=== PATIENT | male | born 1950 | race Caucasian/White ===

== ENCOUNTER 2022-08-16 14:08 | Inpatient (IN) | payer MEDICARE, SELFPAY ==
[2022-08-16 14:08] VITALS: BP 114/64; PULSE 106; RESP 14; TEMP 36.2; O2SAT 98; BMI 25.3
--- NOTE | 2022-08-16 15:36 | EKG12_ITS ---
Test Reason : FALL Blood Pressure : / mmHG Vent. 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
[2022-08-16 15:41] VITALS: BP 107/66; PULSE 99; RESP 18; O2SAT 95
--- NOTE | 2022-08-16 15:45 | NURSING ---
Patient complains of generalized weakness. Family corroborates. Family at bedside.
--- NOTE | 2022-08-16 15:53 | EDS_ITS ---
HPI History of Present Illness Chief Complaint: Fall Narrative Narrative: 72-year-old male presenting with generalized weakness. He also has some shortness of breath. This is gradually worsening. Patient was seen at [facility] on 08/14/2022 for similar symptoms. He was referred to his primary care physician, who referred him to hematology. Today he saw Dr. Nowak. After seeing him today he was referred to the ER. He has had some generalized weakness. His family states that they can care for him at home but he is generally weak. He is sleeping all the time. They do not think he needs placement in a [facility] facility. They state that they were sent to the emergency room to be admitted for a biopsy so that they can then start steroids per hematology. Suspicion for non-Hodgkin's lymphoma at this point. Apparently since symptoms have been increasing over the past weeks to months. [facility] Medical History Hx of completed stroke Urinary hesitancy Home Medications alprazolam 0.5 mg tablet 0.5 mg PO TID 08/16/22 [History Last Taken Unknown] ferrous gluconate 240 mg (27 mg iron) tablet (Ferate) 65 mg PO DAILY 08/16/22 [History Last Taken Unknown] Allergy/AdvReac Type Severity Reaction Status Date / Time diphenhydramine Allergy PT UNSURE Verified 08/16/22 14:11 [From Benadryl] OF REACTION finasteride AdvReac Other Verified 08/16/22 14:12 tamsulosin AdvReac Other Verified 08/16/22 14:12 Family History Brother Cancer colon Mother Cancer skin Father Cancer skin Surgical History History of transurethral resection of bladder tumor (TURBT) Social History (Updated 08/16/22 @ 18:[address] Gely Blake DO) household members: spouse housing: house Smoking Status: Never smoker Smokeless tobacco user: chewing tobacco alcohol intake: never substance use type: does not use ROS ROS ED Review of Systems ROS Unobtainable: Denies due to encephalopathy or due to mental status Constitutional Constitutional ED: Denies chills or fever(s) Eyes Eyes: Denies change in vision or diplopia ENT ENT ED: Denies rhinorrhea or sore throat Cardiovascular Cardiovascular: Denies chest pain Respiratory/Chest Respiratory/Chest: Reports dyspnea Gastrointestinal Gastrointestinal: Reports abdominal pain Genitourinary Genitourinary ED: Denies dysuria or hematuria Musculoskeletal Musculoskeletal: Denies neck pain Integumentary Denies abscess Neurologic Neurologic: Denies headache(s) or paresthesias Psychiatric Psychiatric: Denies anxiety or depression EXAM Physical Exam Const Vital Signs: 08/16/22 14:08 08/16/22 15:41 Temperature 97.2 F L Temperature Source Temporal Pulse Rate 106 H 99 Respiratory Rate 14 18 Blood Pressure 114/64 107/66 Blood Pressure Mean 80 79 Pulse Ox 98 95 Oxygen Delivery Method Room Air Room Air Positive well nourished General Appearance ED: NAD HEENT Reports moist mucous membranes Eyes Negative for PERRL or EOMs intact bilaterally Chest Wall inspection of chest normal Resp normal respiratory effort Effort and Inspection: Negative for retractions Cardio regular rate and regular rhythm GI normal to inspection, nondistended, normoactive bowel sounds Neuro oriented x3 and CN's II-XII intact bilaterally Sensorium / Orientation: alert Psych mental status grossly normal Skin no rashes or lesions noted and no wounds MDM MDM MDM Narrative Medical decision making narrative: Patient presenting with generalized weakness, shortness of breath which is not a new issue its been going on for months. He was previously seen by [facility] had lab work and imaging done was referred to his PCP and then further referred to hematology. Initially discussed with the family regarding placement in [facility] however they did not wish to have [facility] they only wanted to have a biopsy. At this point I did do some screening blood work as the patient is still complaining of shortness of breath and generalized weakness and I spoke with Dr. Serrano who was willing to see the patient on outpatient bas is tomorrow to set him up for a biopsy. I did read Dr. Nowak's note from today and he does have concern for cancer versus lymphoma. Blood work today shows a leukocytosis of 12.6. On August 11 his white blood cell count was 5.6. Hemoglobin at that point was 9.6 and hematocrit was 28.3. Today he had a hemoglobin of 7.7 and hematocrit of 23.2 he does deny black or bloody stools. He states he is not even having large bowel movements. Creatinine on the was 1.31 and his BUN was 17 today his BUN is 47 his creatinine is 1.22 which makes me think he likely has an upper GI bleed of some sort. I did do a Hemoccult stool which was negative. Direct bilirubin is 0.33 however total bilirubin is 1.0 and his AST and ALT are normal. Ammonia came back a little bit elevated at 43. BNP is elevated at 114.6. High-sensitivity troponin was 28. Urinalysis negative for infection. I was able to pull up the read of his previous CTA of the chest which does not show PEs but does show a right upper lobe nodule measuring 1.1 x 1.3 cm and another 1 measuring 0.9 cm. The trevin showed hilar lymphadenopathy with lymph nodes measuring 3.9 x 2.7. There is also mediastinal lymphadenopathy with a termite control service representative lymph node measuring 2.0 x 3.1 there is a right axillary lymph node 1.7 x 2.8 cm which I suspect is where Dr. Nowak wanted to have the biopsy done. Dr. Serrano did state that he could do the biopsy when the patient is in the hospital. I discussed this with Dr. Avilez who is amenable to do a endoscopy to ensure he does not have an upper GI bleed. Impression: 1. Acute blood loss anemia 2. Upper GI bleed 3. Hyperammonemia 4. Dyspnea Lab Data Labs: Laboratory Results - last 24 hr 08/16/22 08/16/22 08/16/22 15:45 15:45 15:45 WBC 12.6 H RBC 2.61 L Hgb 7.7 L Hct 23.2 L MCV 88.9 MCH 29.5 MCHC 33.2 RDW Std Deviation 44.5 H RDW Coeff of Enoc 14.0 Plt Count 331 MPV 10.0 PT INR APTT Sodium 138 Potassium 3.8 Chloride 103 Carbon Dioxide 27.0 Anion Gap 8 BUN 47 H Creatinine 1.22 Estim Creat Clear Calc 60.96 Est GFR (MDRD) Af Amer 75 Est GFR (MDRD) Non-Af 62 BUN/Creatinine Ratio 38.5 H Glucose 125 H Calcium 12.4 H Total Bilirubin 1.00 Direct Bilirubin 0.33 H AST 23 ALT 27 Alkaline Phosphatase 111 Ammonia 43.0 H Troponin I High Sens 28 B-Natriuretic Peptide 114.6 H Total Protein 6.5 Albumin 2.5 L Globulin 4.0 Urine Color Urine Clarity Urine pH Ur Specific [place] Urine Protein Urine Glucose (UA) Urine Ketones Urine Occult Blood Urine Nitrite Urine Bilirubin Urine Urobilinogen Ur Leukocyte Esterase Urine RBC Urine WBC Ur Squamous Epith Cells Urine Bacteria Hyaline Casts Urine Mucus 08/16/22 08/16/22 15:55 17:40 WBC RBC Hgb Hct MCV MCH MCHC RDW Std Deviation RDW Coeff of Enoc Plt Count MPV PT 15.2 H INR 1.2 APTT 27.3 Sodium Potassium Chloride Carbon Dioxide Anion Gap BUN Creatinine Estim Creat Clear Calc Est GFR (MDRD) Af Amer Est GFR (MDRD) Non-Af BUN/Creatinine Ratio Glucose Calcium Total Bilirubin Direct Bilirubin AST ALT Alkaline Phosphatase Ammonia Troponin I High Sens B-Natriuretic Peptide Total Protein Albumin Globulin Urine Color Yellow Urine Clarity Clear Urine pH 5.0 Ur Specific [place] 1.025 Urine Protein 15 H Urine Glucose (UA) Normal Urine Ketones Negative Urine Occult Blood Negative Urine Nitrite Negative Urine Bilirubin Negative Urine Urobilinogen Normal Ur Leukocyte Esterase Negative Urine RBC 0 SEEN Urine WBC 0-5 SEEN Ur Squamous Epith Cells 0 SEEN Urine Bacteria 0 SEEN Hyaline Casts 0-5 SEEN Urine Mucus 0 SEEN Discharge Plan Triage Chief Complaint: Fall ED Provider: David Hayden Dx/Rx/DC Orders Primary Care Provider: Darius Morales
[2022-08-16 16:04] LABS: Bacteria 0 SEEN /hpf (None Seen); Mucous, Urine 0 SEEN /hpf (<or=2+); Red Blood Cells-Urine 0 SEEN /hpf (0-5); Squamous Epithelial Cells - UA 0 SEEN /hpf (0-5)
[2022-08-16 16:08] LABS: Color, Urine Yellow (Yellow); Glucose, Dipstick Normal (Normal); Ketone-Dipstick Negative (Negative); Leukocyte Esterase-Dipstick Negative /ul (Negative); Nitrite-Dipstick Negative (Negative); Occult Blood-Urine Negative /ul (Negative); Protein-Dipstick 15 mg/dl (Negative); Specific Gravity, Urine 1.025 (1.002-1.030); Urine Bilirubin Dipstick Negative (Negative); Urine Clarity Clear (Clear); Urine Urobilinogen Normal (Normal)
[2022-08-16 16:08] LABS: Hematocrit 23.2 % (40-54); Hemoglobin 7.7 g/dL (13.0-16.5); Mean Corp Hgb Conc 33.2 g/dL (32-36); Mean Corpuscular Hgb 29.5 pg (27.0-32.0); Mean Corpuscular Volume 88.9 fL (80-94); Platelet Count 331 K/mm3 (150-450); RBC Distribution Width SD 44.5 fl (35.1-43.9); Red Blood Count 2.61 M/mm3 (4.6-6.2); White Blood Count 12.6 K/mm3 (4.4-11.0)
[2022-08-16 16:22] LABS: AST(SGOT) 23 U/L (15-37); Alanine Aminotransfer ALT/SGPT 27 U/L (16-61); Albumin, Serum 2.5 g/dL (3.2-5.0); Alkaline Phosphatase 111 U/L (45-117); Anion Gap 8 (5-15); BUN 47 mg/dL (7-18); BUN/Creat Ratio 38.5 RATIO (10-20); Bilirubin, Direct 0.33 mg/dL (0.00-0.30); Calcium,Total 12.4 mg/dL (8.5-10.1); Chloride 103 mmol/L (98-107); Creatinine, Serum 1.22 mg/dL (0.70-1.30); EST Glomerular Filtration Rate 62 mL/min (>60); Est Glom Filt Rate - Afr Amer 75 mL/min (>60); Estimated Creatinine Clearance 60.96 ml/min; Glucose 125 mg/dL (74-106); Potassium 3.8 mmol/L (3.5-5.1); Protein, Total 6.5 g/dL (6.4-8.2); Sodium Level 138 mmol/L (136-145); Troponin-I HS 28 pg/mL (3.0-78.0)
[2022-08-16 16:47] LABS: White Blood Cells 0-5 SEEN /hpf (0-5)
[2022-08-16 16:48] LABS: Hyaline Cast 0-5 SEEN /lpf (0-5)
[2022-08-16 17:03] LABS: BNP,B-Type NATRIURETIC PEPTIDE 114.6 pg/mL (0-100)
--- NOTE | 2022-08-16 17:53 | PCM.HP.STD ---
[facility] - General General Date of Admission: 08/16/22 Date of Service: 08/16/22 Chief Complaint: generalized weakness HPI Narrative ISABEL GRIGGS, is a 72 M who presented to the emergency department at [facility] on 08/16/2022 directed here by oncology. The patient was seen in [facility] on 08/14/2022 for generalized weakness, shortness of breath, night sweats, fevers, and decreased appetite. At the time of that evaluation they referred him to his primary care physician who then referred him to hematology. He saw Dr. Nowak today in the office and after seeing him he was referred to the emergency department. Imaging done at the outside facility showed mediastinal and abdominal lymphadenopathy. Per oncology documentation the goal of admission was to obtain a biopsy and establish a diagnosis. The patient states his symptoms started about 3 weeks ago and has attributed it to mold exposure after baling hay with his son. Patient indicates he has a severe mold allergy at baseline. His appetite has been extremely poor and per family he is lost quite a bit of weight. He does feel that his abdominal cavity is distended however. Vital signs today at presentation demonstrated temperature of 98.7, heart rate 101, blood pressure 108/68, respiratory rate 19 and oxygen saturation is 95 to 98% on room air. CBC shows a mild leukocytosis. Unfortunately differential was not performed. He has a normocytic anemia with a hemoglobin of 7.7. Guaiac was performed the emergency department and was negative. His platelet count is normal. Coags are pending. Chemistry panel was unremarkable other than a BUN of 47 and a serum creatinine of 1.22. Serum glucose was 125. Calcium was elevated at 12.4. Liver functions are normal. An ammonia was obtained and was 43 however patient's mentation is clear. Troponin was normal at 28. A BNP was obtained and found to be 114.6. His UA was overall unremarkable other than some mild proteinuria and a specific gravity was elevated at 1.025. On exam the patient does have diffuse lymphadenopathy supraclavicular, inguinal, axillary, and submandibular. The emergency department physician discussed the case with Dr. Serrano from general surgery and he noted he would see the patient tomorrow morning for planned biopsy of the left axilla lymph node. With his anemia gastroenterology was called as well and they plan on doing an EGD and colonoscopy however the timing of that is not clear at this time. [facility] Medical History Hx of completed stroke Urinary hesitancy Home Medications alprazolam 0.5 mg tablet 0.5 mg PO TID 08/16/22 [History Last Taken Unknown] ferrous gluconate 240 mg (27 mg iron) tablet (Ferate) 65 mg PO DAILY 08/16/22 [History Last Taken Unknown] Allergy/AdvReac Type Severity Reaction Status Date / Time diphenhydramine Allergy PT UNSURE Verified 08/16/22 14:11 [From Benadryl] OF REACTION finasteride AdvReac Other Verified 08/16/22 14:12 tamsulosin AdvReac Other Verified 08/16/22 14:12 Family History Brother Cancer colon Mother Cancer skin Father Cancer skin Surgical History History of transurethral resection of bladder tumor (TURBT) Social History (Updated 08/16/22 @ 18:[address] Gely Blake DO) household members: spouse housing: house Smoking Status: Never smoker Smokeless tobacco user: chewing tobacco alcohol intake: never substance use type: does not use Vital Signs Vital Signs Vital Signs: 08/16/22 14:08 08/16/22 15:41 Temperature 97.2 F L Temperature Source Temporal Pulse Rate 106 H 99 Respiratory Rate 14 18 Blood Pressure 114/64 107/66 Blood Pressure Mean 80 79 Pulse Ox 98 95 Oxygen Delivery Method Room Air Room Air Weight Weight: 84.822 kg Body Mass Index (BMI) 25.3 Physical Exam Const alert, oriented x3 and no apparent distress; Negative for well nourished Constitutional Narrative: Elderly white male lying in bed, family at bedside, patient appears comfortable and nontoxic General Appearance: cooperative HEENT normocephalic and head/scalp atraumatic HEENT Narrative: Temporal wasting, mild hearing loss, mucous membranes are dry Eyes PERRL and EOMs intact bilaterally Eyes Narrative: Conjunctiva pale bilaterally, no scleral icterus Neck No no lymphadenopathy, supple and no JVD Neck Narrative: Patient with submandibular and supraclavicular lymphadenopathy, axillary lymphadenopathy is present, inguinal lymphadenopathy is present Resp normal respiratory effort, no retractions, no use of accessory muscles and clear to auscultation bilaterally Auscultation: Negative for rales, rhonchi or wheezes Cardio regular rate, regular rhythm, S1 normal heart sound, S2 normal heart sound, no murmurs, no rub, no gallops and no clicks GI normal to inspection, nondistended, normoactive bowel sounds and soft to palpation; Negative for non-tender GI Narrative: Very mild tenderness diffusely but no specific point tenderness Extremity no clubbing, cyanosis or edema Extremity Narrative: 2+ pedal pulses Skin no wounds, no jaundice, no petechiae and no mottling Skin Narrative: Pale skin, multiple subcutaneous well-circumscribed nodules most notable on his upper extremities-Per there chronic, skin turgor is abnormal Neuro oriented x3, CN's II-XII intact bilaterally, moves all extremities and no focal motor deficits Neuro Narrative: Significant generalized weakness noted-proximal greater than distal, no sensory deficits Speech: speech normal Psych affect normal Psych Narrative: Pleasantly interactive, appropriate Results Lab / Micro Data Attestation: I reviewed the patient's lab results. Result Diagrams: 08/16/22 15:45 08/16/22 15:45 Labs: Laboratory Results - last 24 hr 08/16/22 15:45: WBC 12.6 H, RBC 2.61 L, Hgb 7.7 L, Hct 23.2 L, MCV 88.9, MCH 29.5, MCHC 33.2, RDW Std Deviation 44.5 H, RDW Coeff of Enoc 14.0, Plt Count 331, MPV 10.0 08/16/22 15:45: Sodium 138, Potassium 3.8, Chloride 103, Carbon Dioxide 27.0, Anion Gap 8, BUN 47 H, Creatinine 1.22, Estim Creat Clear Calc 60.96, Est GFR (MDRD) Af Amer 75, Est GFR (MDRD) Non-Af 62, BUN/Creatinine Ratio 38.5 H, Glucose 125 H, Calcium 12.4 H, Total Bilirubin 1.00, Direct Bilirubin 0.33 H, AST 23, ALT 27, Alkaline Phosphatase 111, Troponin I High Sens 28, Total Protein 6.5, Albumin 2.5 L, Globulin 4.0 08/16/22 15:45: Ammonia 43.0 H, B-Natriuretic Peptide 114.6 H 08/16/22 15:55: Urine Color Yellow, Urine Clarity Clear, Urine pH 5.0, Ur Specific [place] 1.025, Urine Protein 15 H, Urine Glucose (UA) Normal, Urine Ketones Negative, Urine Occult Blood Negative, Urine Nitrite Negative, Urine Bilirubin Negative, Urine Urobilinogen Normal, Ur Leukocyte Esterase Negative, Urine RBC 0 SEEN, Urine WBC 0-5 SEEN, Ur Squamous Epith Cells 0 SEEN, Urine Bacteria 0 SEEN, Hyaline Casts 0-5 SEEN, Urine Mucus 0 SEEN Micro: Microbiology 08/16/22 16:30 Stool Stool Occult Blood (VELVET) - Final Assessment & Plan Assessment/Plan (1) Failure to thrive syndrome, adult: (2) SOB (shortness of breath): (3) Diffuse lymphadenopathy: (4) Generalized weakness: (5) Anemia: (6) Dehydration: (7) Hypercalcemia: (8) Leukocytosis: PLAN: Plan Generalized weakness/failure to thrive/diffuse lymphadenopathy -Need to rule out lymphoma versus other cancer -Biopsy planned of axillary lymph node--> Dr. Serrano consulted -Check LDH -Check uric acid -Check B12 -Check folate -Consult Dr. Nowak Anemia -Normocytic -Check iron studies -Check B12 -Check folate -Guaiac negative -Continue home iron supplementation -Consult Dr. Avilez Hypercalcemia -May be related to dehydration but could be related to suspected cancer -We will hydrate and repeat in a.m. -If remains elevated will likely need intact PTH and further work-up Leukocytosis -No signs of infection -Likely related to above -Continue to monitor Dehydration -No CLAUDE but patient appears markedly dehydrated with a specific gravity of his urine of 1.025 -BUN is elevated at 47 -Serum creatinine is 1.22 -Baseline serum creatinine is unclear at this time -IV fluids with LR at 75 cc/h Severe malnutrition -Consult dietitian -Add supplements BPH -History of TURP -Has allergy to Proscar and Flomax Anxiety -Continue home Xanax DVT prophylaxis -Lovenox--> will continue since guaiac was negative but monitor hemoglobin closely CODE STATUS -Full code as verified on admission Charges/Coding Visit Charges Inpatient E&M: 32163 Init Hosp L3
[2022-08-16 18:12] VITALS: BP 116/71; PULSE 97; RESP 16; TEMP 37.1; O2SAT 93
[2022-08-16 18:22] LABS: International Normalized Ratio 1.2; Prothrombin Time (Protime)PT. 15.2 SECONDS (11.7-14.9)
[2022-08-16 18:23] LABS: Partial Thromboplast Time 27.3 Seconds (24.1-36.2)
[2022-08-16 19:06] VITALS: BP 132/71; PULSE 96; RESP 18; O2SAT 96
[2022-08-16 19:42] LABS: Platelet Count 309 K/mm3 (150-450); Reticulocyte Count 0.17 % (0.5-1.5)
[2022-08-16 19:56] VITALS: BMI 25.4
[2022-08-16 19:59] LABS: Ferritin 1352 ng/mL (26-388); Iron 154 ug/dL (65-175); Iron Binding Capacity,Total 155 ug/dL (250-450); LDH 408 U/L (87-241); PERCENT IRON SATURATION 99.4 % (15.0-55.0); Uric Acid 9.6 mg/dL (3.5-7.2)
[2022-08-16 20:14] VITALS: BP 130/66; PULSE 96; RESP 20; TEMP 36.9; O2SAT 93
[2022-08-16] MEDS: 0.9% Saline Lock 10 ML Syringe IV (20:19)
[2022-08-16] MEDS: Lactated Ringers 1,000 ML 70 ML IV (20:19)
[2022-08-16 20:46] VITALS: BP 130/66; PULSE 96; RESP 18; TEMP 36.9; O2SAT 93
--- NOTE | 2022-08-16 21:00 | EX.PCM.CON.G ---
HPI Consult Data Date of Consult: 08/16/22 HPI Narrative Reason for Consultation: Anemia HPI Narrative: ISABEL GRIGGS, is a 72 M who presents with generalized weakness.? He also has some shortness of breath.? This is gradually worsening.? [facility] for similar symptoms.? He was referred to his primary care physician, who referred him to hematology.? CT done on 08/11/2022 showed Generalized adenopathy, hepatosplenomegaly and ascites.? He has progressively grown weaker, has poor appetite and night sweats. Today he saw Dr. Nowak.? After seeing him today he was referred to the ER.? He has had some generalized weakness.? His family states that they can care for him at home but he is generally weak.? He is sleeping all the time.? ? They state that they were sent to the emergency room to be admitted for a biopsy so that they can then start steroids per hematology.? Suspicion for non-Hodgkin's lymphoma at this point.? Apparently since symptoms have been increasing over the past weeks to months. I was asked to see him due to his progressive anemia. His hemoglobin was 14 and decreased down to 10 and is currently at 8.6. [facility] Medical History Hx of completed stroke Urinary hesitancy Home Medications alprazolam 0.5 mg tablet 0.5 mg PO TID PRN Anxiety 08/16/22 [History Last Taken 08/15/22] ferrous gluconate 240 mg (27 mg iron) tablet (Ferate) 65 mg PO DAILY supplement 08/16/22 [History Last Taken 08/16/22] Allergy/AdvReac Type Severity Reaction Status Date / Time diphenhydramine Allergy PT UNSURE Verified 08/16/22 14:11 [From Benadryl] OF REACTION finasteride AdvReac Other Verified 08/16/22 14:12 tamsulosin AdvReac Other Verified 08/16/22 14:12 Family History Brother Cancer colon Mother Cancer skin Father Cancer skin Surgical History History of transurethral resection of bladder tumor (TURBT) Social History (Updated 08/16/22 @ 18:[address] Gely Blake, DO) household members: spouse housing: house Smoking Status: Never smoker Smokeless tobacco user: chewing tobacco alcohol intake: never substance use type: does not use ROS Constitutional Constitutional: Reports systems reviewed and no addt'l complaints, except as documented, excessive sweating and night sweats Eyes Eyes: Reports systems reviewed and no addt'l complaints, except as documented ENT HEENT: Reports systems reviewed and no addt'l complaints, except as documented Cardiovascular Cardiovascular: Reports systems reviewed and no addt'l complaints, except as documented Respiratory/Chest Respiratory/Chest: Reports systems reviewed and no addt'l complaints, except as documented, shortness of breath at rest and shortness of breath with exertion Gastrointestinal Gastrointestinal: Reports systems reviewed and no addt'l complaints, except as documented Genitourinary Genitourinary: Reports systems reviewed and no addt'l complaints, except as documented Musculoskeletal Musculoskeletal: Reports systems reviewed and no addt'l complaints, except as documented Integumentary Integumentary: Reports systems reviewed and no addt'l complaints, except as documented Neurologic Neurologic: Reports systems reviewed and no addt'l complaints, except as documented Psychiatric Psychiatric: Reports systems reviewed and no addt'l complaints, except as documented Endocrine Endocrinology: Reports systems reviewed and no addt'l complaints, except as documented Hematologic/Lymphatic Hematologic/Lymphatic: Reports systems reviewed and no addt'l complaints, except as documented and lymphadenopathy Allergic/Immunologic Allergic/Immunologic: Reports systems reviewed and no addt'l complaints, except as documented Physical Exam Narrative General: Alert, Oriented x3, Cooperative, No apparent distress, diaphoretic HEENT: Atraumatic, PERRLA, EOMI, Normocephalic Oral: Moist Mucosa Neck: Supple, No JVD, lymphadenopathy Lungs: Diminished, Normal air movement, No rhonchi, No wheeze, No rales Cardiovascular: Regular rate, Regular Rhythm, Normal S1, Normal S2, No murmurs Abdomen: Soft, Non Tender, slightly distended, No Hepato-splenomegaly Extremities: No edema, Capillary Refill Less than 3 Seconds Skin: No rashes, No breakdown, pale Musculoskeletal: No Tenderness to Palpation of Joints or Extremities Neurological: Moves all extremities, sensation intact Psych/Mental Status: Normal Affect, Appropriate Lab / Micro Data Result Diagrams: 08/17/22 06:00 08/17/22 06:00 Labs: Laboratory Results - last 24 hr 08/16/22 15:45: WBC 12.6 H, RBC 2.61 L, Hgb 7.7 L, Hct 23.2 L, MCV 88.9, MCH 29.5, MCHC 33.2, RDW Std Deviation 44.5 H, RDW Coeff of Enoc 14.0, Plt Count 331, MPV 10.0 08/16/22 15:45: Sodium 138, Potassium 3.8, Chloride 103, Carbon Dioxide 27.0, Anion Gap 8, BUN 47 H, Creatinine 1.22, Estim Creat Clear Calc 60.96, Est GFR (MDRD) Af Amer 75, Est GFR (MDRD) Non-Af 62, BUN/Creatinine Ratio 38.5 H, Glucose 125 H, Calcium 12.4 H, Total Bilirubin 1.00, Direct Bilirubin 0.33 H, AST 23, ALT 27, Alkaline Phosphatase 111, Troponin I High Sens 28, Total Protein 6.5, Albumin 2.5 L, Globulin 4.0 08/16/22 15:45: Ammonia 43.0 H, B-Natriuretic Peptide 114.6 H 08/16/22 15:45: Uric Acid 9.6 H, Iron 154, TIBC 155 L, Iron Saturation 99.4 H, Ferritin 1352 H, Lactate Dehydrogenase 408 H, Folate 9.40 08/16/22 15:55: Urine Color Yellow, Urine Clarity Clear, Urine pH 5.0, Ur Specific [place] 1.025, Urine Protein 15 H, Urine Glucose (UA) Normal, Urine Ketones Negative, Urine Occult Blood Negative, Urine Nitrite Negative, Urine Bilirubin Negative, Urine Urobilinogen Normal, Ur Leukocyte Esterase Negative, Urine RBC 0 SEEN, Urine WBC 0-5 SEEN, Ur Squamous Epith Cells 0 SEEN, Urine Bacteria 0 SEEN, Hyaline Casts 0-5 SEEN, Urine Mucus 0 SEEN 08/16/22 17:40: PT 15.2 H, INR 1.2, APTT 27.3 08/16/22 17:40: Blood Type A POSITIVE, Antibody Screen POSITIVE H 08/16/22 17:40: Crossmatch See Detail 08/16/22 19:30: Retic Count 0.17 L, Immature Retic Fraction 1.70 L, Retic Hgb Equivalent 32.0 08/16/22 20:34: Vitamin B12 504 08/17/22 06:00: WBC 15.8 H, RBC 2.40 L, Hgb 6.9 L, Hct 20.6 L, MCV 85.8, MCH 28.8, MCHC 33.5, RDW Std Deviation 43.1, RDW Coeff of Enoc 13.8, Plt Count 293, MPV 9.8, Immature Gran % (Auto) 0.600, Neut % (Auto) 17.3 L, Lymph % (Auto) 65.9 H, [place] % (Auto) 15.2 H, Eos % (Auto) 0.2, Baso % (Auto) 0.8, Absolute Neuts (auto) 2.7, Absolute Lymphs (auto) 10.40 H, Nucleated RBC % 0, Diff Path Review Reviewed, Atypical Lymphocytes SCANNED 08/17/22 06:00: Sodium 140, Potassium 4.0, Chloride 106, Carbon Dioxide 29.0, Anion Gap 5, BUN 44 H, Creatinine 1.13, Estim Creat Clear Calc 65.81, Est GFR (MDRD) Af Amer 82, Est GFR (MDRD) Non-Af 68, BUN/Creatinine Ratio 38.9 H, Glucose 125 H, Calcium 11.3 H, Phosphorus 3.5, Magnesium 2.0, Total Bilirubin 0.90, AST 20, ALT 24, Alkaline Phosphatase 106, Total Protein 6.1 L, Albumin 2.4 L, Globulin 3.7, Albumin/Globulin Ratio 0.6 L, TSH 2.96 Micro: Microbiology 08/16/22 16:30 Stool Stool Occult Blood (VELVET) - Final Assessment & Plan Assessment/Plan (1) Failure to thrive syndrome, adult: (2) SOB (shortness of breath): (3) Diffuse lymphadenopathy: (4) Generalized weakness: (5) Anemia: (6) Dehydration: (7) Hypercalcemia: (8) Leukocytosis: PLAN: Plan Differential diagnosis for his acute anemia is hemolysis or bone marrow infiltration versus occult GI bleed. He will undergo an upper endoscopy as his stools for occult blood were negative. He was explained alternatives, risk, benefits including not withstanding bleeding, infection, sepsis, perforation, need for emergent surgery and . He will have an ASA of 3. Charges/Coding Visit Charges Inpatient E&M: 39240 Init Hosp L2
[2022-08-16 21:47] LABS: Vitamin B12 504 pg/mL (211-911)
[2022-08-16] MEDS: ALPRAZolam 0.5 MG Tablet PO (23:31)
[2022-08-17] VITALS (11 sets, daily range): BP systolic 106–139; BP diastolic 64–78; PULSE 92–97; RESP 16–22; TEMP 36.3–37.3; O2SAT 93–96
[2022-08-17 06:15] LABS: Absolute Neutrophil Count 2.7 X10^3/uL (2.0-7.7); Basophil# 0.12 X10^3/uL; Basophil% 0.8 % (0-1); Eosinophil# 0.03 X10^3/uL; Eosinophils% 0.2 % (0-5); Hematocrit 20.6 % (40-54); Hemoglobin 6.9 g/dL (13.0-16.5); Lymphocyte % 65.9 % (19-41); Mean Corp Hgb Conc 33.5 g/dL (32-36); Mean Corpuscular Hgb 28.8 pg (27.0-32.0); Mean Corpuscular Volume 85.8 fL (80-94); Mean Platelet Vol. 9.8 fl (6.2-12.0); Monocyte% 15.2 % (0-10); NRBC Flagged by Analyzer 0 % (0-5); Neutrophil # 2.72 X10^3/uL (2.7-7.7); Neutrophil % 17.3 % (47-70); POSITIVE DIFFERENTIAL YES; POSITIVE MORPHOLOGY YES; Platelet Count 293 K/mm3 (150-450); RBC Distribution Width CV 13.8 % (11.6-14.6); RBC Distribution Width SD 43.1 fl (35.1-43.9); White Blood Count 15.8 K/mm3 (4.4-11.0)
[2022-08-17 06:18] LABS: Differential Indicated SCAN CRITERIA MET
[2022-08-17 06:43] LABS: Atypical Lymphocyte SCANNED %
[2022-08-17 06:45] LABS: ALB/GLOB Ratio 0.6 RATIO (0.9-2.4); AST(SGOT) 20 U/L (15-37); Alanine Aminotransfer ALT/SGPT 24 U/L (16-61); Albumin, Serum 2.4 g/dL (3.2-5.0); Alkaline Phosphatase 106 U/L (45-117); Anion Gap 5 (5-15); BUN 44 mg/dL (7-18); BUN/Creat Ratio 38.9 RATIO (10-20); Calcium,Total 11.3 mg/dL (8.5-10.1); Chloride 106 mmol/L (98-107); Creatinine, Serum 1.13 mg/dL (0.70-1.30); EST Glomerular Filtration Rate 68 mL/min (>60); Est Glom Filt Rate - Afr Amer 82 mL/min (>60); Estimated Creatinine Clearance 65.81 ml/min; Globulin 3.7 g/dL (2.2-4.2); Glucose 125 mg/dL (74-106); Phosphorus 3.5 mg/dL (2.5-4.9); Protein, Total 6.1 g/dL (6.4-8.2); Sodium Level 140 mmol/L (136-145); Thyroid Stim Hormone (TSH) 2.96 uIU/mL (0.358-3.74)
--- NOTE | 2022-08-17 07:09 | HP.PCM_ITS ---
HPI - General General Date of Admission: 08/16/22 Chief Complaint: generalized weakness HPI Narrative ISABEL GRIGGS, is a 72 M who presents [facility] Medical History Hx of completed stroke Urinary hesitancy Home Medications alprazolam 0.5 mg tablet 0.5 mg PO TID PRN Anxiety 08/16/22 [History Last Taken 08/15/22] ferrous gluconate 240 mg (27 mg iron) tablet (Ferate) 65 mg PO DAILY supplement 08/16/22 [History Last Taken 08/16/22] Allergy/AdvReac Type Severity Reaction Status Date / Time diphenhydramine Allergy PT UNSURE Verified 08/16/22 14:11 [From Benadryl] OF REACTION finasteride AdvReac Other Verified 08/16/22 14:12 tamsulosin AdvReac Other Verified 08/16/22 14:12 Family History Brother Cancer colon Mother Cancer skin Father Cancer skin Surgical History History of transurethral resection of bladder tumor (TURBT) Social History (Updated 08/16/22 @ 18:[address] Gely Blake DO) household members: spouse housing: house Smoking Status: Never smoker Smokeless tobacco user: chewing tobacco alcohol intake: never substance use type: does not use Vital Signs Vital Signs Vital Signs: 08/16/22 14:08 08/16/22 15:41 08/16/22 18:12 Temperature 97.2 F L 98.8 F Temperature Source Temporal Temporal Pulse Rate 106 H 99 97 Pulse Strength Respiratory Rate 14 18 16 Respiratory Effort Respiratory Depth Respiratory Pattern Blood Pressure 114/64 107/66 116/71 Blood Pressure Mean 80 79 86 Blood Pressure Source Blood Pressure Position Blood Pressure Location Pulse Ox 98 95 93 Oxygen Delivery Method Room Air Room Air Room Air 08/16/22 19:06 08/16/22 20:14 08/16/22 20:42 Temperature 98.5 F Temperature Source Oral Pulse Rate 96 96 Pulse Strength Respiratory Rate 18 20 H Respiratory Effort Normal Non-Labored Respiratory Depth Normal Respiratory Pattern Normal Blood Pressure 132/71 H 130/66 H Blood Pressure Mean 91 87 Blood Pressure Source Monitor Blood Pressure Position Semi-Fowlers Blood Pressure Location Right Arm Pulse Ox 96 93 Oxygen Delivery Method Room Air Room Air Room Air 08/16/22 20:46 08/16/22 22:00 08/17/22 02:48 Temperature 98.5 F 97.3 F L Temperature Source Oral Oral Pulse Rate 96 97 Pulse Strength Normal (2+) Respiratory Rate 18 18 Respiratory Effort Respiratory Depth Respiratory Pattern Blood Pressure 130/66 H 130/68 H Blood Pressure Mean 87 88 Blood Pressure Source Monitor Blood Pressure Position Semi-Fowlers Blood Pressure Location Right Arm Pulse Ox 93 95 Oxygen Delivery Method Room Air Room Air Weight Weight: 187 lb 9.814 oz Body Mass Index (BMI) 25.4 Results Lab / Micro Data Result Diagrams: 08/17/22 06:00 08/17/22 06:00 Labs: Laboratory Results - last 24 hr 08/16/22 15:45: WBC 12.6 H, RBC 2.61 L, Hgb 7.7 L, Hct 23.2 L, MCV 88.9, MCH 29.5, MCHC 33.2, RDW Std Deviation 44.5 H, RDW Coeff of Enoc 14.0, Plt Count 331, MPV 10.0 08/16/22 15:45: Sodium 138, Potassium 3.8, Chloride 103, Carbon Dioxide 27.0, Anion Gap 8, BUN 47 H, Creatinine 1.22, Estim Creat Clear Calc 60.96, Est GFR (MDRD) Af Amer 75, Est GFR (MDRD) Non-Af 62, BUN/Creatinine Ratio 38.5 H, Glucose 125 H, Calcium 12.4 H, Total Bilirubin 1.00, Direct Bilirubin 0.33 H, AST 23, ALT 27, Alkaline Phosphatase 111, Troponin I High Sens 28, Total Protein 6.5, Albumin 2.5 L, Globulin 4.0 08/16/22 15:45: Ammonia 43.0 H, B-Natriuretic Peptide 114.6 H 08/16/22 15:45: Uric Acid 9.6 H, Iron 154, TIBC 155 L, Iron Saturation 99.4 H, Ferritin 1352 H, Lactate Dehydrogenase 408 H, Folate 9.40 08/16/22 15:55: Urine Color Yellow, Urine Clarity Clear, Urine pH 5.0, Ur Specific [place] 1.025, Urine Protein 15 H, Urine Glucose (UA) Normal, Urine Ketones Negative, Urine Occult Blood Negative, Urine Nitrite Negative, Urine Bilirubin Negative, Urine Urobilinogen Normal, Ur Leukocyte Esterase Negative, Urine RBC 0 SEEN, Urine WBC 0-5 SEEN, Ur Squamous Epith Cells 0 SEEN, Urine Bacteria 0 SEEN, Hyaline Casts 0-5 SEEN, Urine Mucus 0 SEEN 08/16/22 17:40: PT 15.2 H, INR 1.2, APTT 27.3 08/16/22 17:40: Blood Type A POSITIVE, Antibody Screen POSITIVE H 08/16/22 19:30: Retic Count 0.17 L, Immature Retic Fraction 1.70 L, Retic Hgb Equivalent 32.0 08/16/22 20:34: Vitamin B12 504 08/17/22 06:00: WBC 15.8 H, RBC 2.40 L, Hgb 6.9 L, Hct 20.6 L, MCV 85.8, MCH 28.8, MCHC 33.5, RDW Std Deviation 43.1, RDW Coeff of Enoc 13.8, Plt Count 293, MPV 9.8, Immature Gran % (Auto) 0.600, Neut % (Auto) 17.3 L, Lymph % (Auto) 65.9 H, [place] % (Auto) 15.2 H, Eos % (Auto) 0.2, Baso % (Auto) 0.8, Absolute Neuts (auto) 2.7, Absolute Lymphs (auto) 10.40 H, Nucleated RBC % 0, Diff Path Review May foll, Atypical Lymphocytes SCANNED 08/17/22 06:00: Sodium 140, Potassium 4.0, Chloride 106, Carbon Dioxide 29.0, Anion Gap 5, BUN 44 H, Creatinine 1.13, Estim Creat Clear Calc 65.81, Est GFR (MDRD) Af Amer 82, Est GFR (MDRD) Non-Af 68, BUN/Creatinine Ratio 38.9 H, Glucose 125 H, Calcium 11.3 H, Phosphorus 3.5, Magnesium 2.0, Total Bilirubin 0.90, AST 20, ALT 24, Alkaline Phosphatase 106, Total Protein 6.1 L, Albumin 2.4 L, Globulin 3.7, Albumin/Globulin Ratio 0.6 L, TSH 2.96 Micro: Microbiology 08/16/22 16:30 Stool Stool Occult Blood (VELVET) - Final
--- NOTE | 2022-08-17 10:34 | PCM.PN.HOSP ---
Subjective Subjective Still feels little short of breath with continued night sweats Objective Data Objective Data Vital Signs: Vital Signs Temp Pulse Resp BP Pulse Ox O2 Del Method 97.6 F L 92 17 115/70 93 Room Air 08/17/22 08:00 08/17/22 08:00 08/17/22 08:00 08/17/22 08:00 08/17/22 08:58 08/17/22 08:58 Oxygen Delivery Method Room Air Weight: 187 lb 9.814 oz Body Mass Index (BMI) 25.4 Intake & Output: Intake and Output for Last 24 Hours 08/16/22 08/17/22 08/18/22 03:59 03:59 03:59 Intake Total 500 / 500 0 / 0 Output Total 300 / 300 Balance 200 / 200 0 / 0 Lab / Micro Data Result Diagrams: 08/17/22 06:00 08/17/22 06:00 Labs: Laboratory Results - last 24 hr 08/16/22 15:45: WBC 12.6 H, RBC 2.61 L, Hgb 7.7 L, Hct 23.2 L, MCV 88.9, MCH 29.5, MCHC 33.2, RDW Std Deviation 44.5 H, RDW Coeff of Enoc 14.0, Plt Count 331, MPV 10.0 08/16/22 15:45: Sodium 138, Potassium 3.8, Chloride 103, Carbon Dioxide 27.0, Anion Gap 8, BUN 47 H, Creatinine 1.22, Estim Creat Clear Calc 60.96, Est GFR (MDRD) Af Amer 75, Est GFR (MDRD) Non-Af 62, BUN/Creatinine Ratio 38.5 H, Glucose 125 H, Calcium 12.4 H, Total Bilirubin 1.00, Direct Bilirubin 0.33 H, AST 23, ALT 27, Alkaline Phosphatase 111, Troponin I High Sens 28, Total Protein 6.5, Albumin 2.5 L, Globulin 4.0 08/16/22 15:45: Ammonia 43.0 H, B-Natriuretic Peptide 114.6 H 08/16/22 15:45: Uric Acid 9.6 H, Iron 154, TIBC 155 L, Iron Saturation 99.4 H, Ferritin 1352 H, Lactate Dehydrogenase 408 H, Folate 9.40 08/16/22 15:55: Urine Color Yellow, Urine Clarity Clear, Urine pH 5.0, Ur Specific [place] 1.025, Urine Protein 15 H, Urine Glucose (UA) Normal, Urine Ketones Negative, Urine Occult Blood Negative, Urine Nitrite Negative, Urine Bilirubin Negative, Urine Urobilinogen Normal, Ur Leukocyte Esterase Negative, Urine RBC 0 SEEN, Urine WBC 0-5 SEEN, Ur Squamous Epith Cells 0 SEEN, Urine Bacteria 0 SEEN, Hyaline Casts 0-5 SEEN, Urine Mucus 0 SEEN 08/16/22 17:40: PT 15.2 H, INR 1.2, APTT 27.3 08/16/22 17:40: Blood Type A POSITIVE, Antibody Screen POSITIVE H 08/16/22 17:40: Crossmatch See Detail 08/16/22 19:30: Retic Count 0.17 L, Immature Retic Fraction 1.70 L, Retic Hgb Equivalent 32.0 08/16/22 20:34: Vitamin B12 504 08/17/22 06:00: WBC 15.8 H, RBC 2.40 L, Hgb 6.9 L, Hct 20.6 L, MCV 85.8, MCH 28.8, MCHC 33.5, RDW Std Deviation 43.1, RDW Coeff of Enoc 13.8, Plt Count 293, MPV 9.8, Immature Gran % (Auto) 0.600, Neut % (Auto) 17.3 L, Lymph % (Auto) 65.9 H, [place] % (Auto) 15.2 H, Eos % (Auto) 0.2, Baso % (Auto) 0.8, Absolute Neuts (auto) 2.7, Absolute Lymphs (auto) 10.40 H, Nucleated RBC % 0, Diff Path Review October foll, Atypical Lymphocytes SCANNED 08/17/22 06:00: Sodium 140, Potassium 4.0, Chloride 106, Carbon Dioxide 29.0, Anion Gap 5, BUN 44 H, Creatinine 1.13, Estim Creat Clear Calc 65.81, Est GFR (MDRD) Af Amer 82, Est GFR (MDRD) Non-Af 68, BUN/Creatinine Ratio 38.9 H, Glucose 125 H, Calcium 11.3 H, Phosphorus 3.5, Magnesium 2.0, Total Bilirubin 0.90, AST 20, ALT 24, Alkaline Phosphatase 106, Total Protein 6.1 L, Albumin 2.4 L, Globulin 3.7, Albumin/Globulin Ratio 0.6 L, TSH 2.96 Micro: Microbiology 08/16/22 16:30 Stool Stool Occult Blood (VELVET) - Final Physical Exam Narrative General: Alert, Oriented x3, Cooperative, No apparent distress, diaphoretic HEENT: Atraumatic, PERRLA, EOMI, Normocephalic Oral: Moist Mucosa Neck: Supple, No JVD, lymphadenopathy Lungs: Diminished, Normal air movement, No rhonchi, No wheeze, No rales Cardiovascular: Regular rate, Regular Rhythm, Normal S1, Normal S2, No murmurs Abdomen: Soft, Non Tender, slightly distended, No Hepato-splenomegaly Extremities: No edema, Capillary Refill Less than 3 Seconds Skin: No rashes, No breakdown, pale Musculoskeletal: No Tenderness to Palpation of Joints or Extremities Neurological: Moves all extremities, sensation intact Psych/Mental Status: Normal Affect, Appropriate Assessment & Plan Assessment/Plan (1) Failure to thrive syndrome, adult: (2) SOB (shortness of breath): (3) Diffuse lymphadenopathy: (4) Generalized weakness: (5) Anemia: (6) Dehydration: (7) Hypercalcemia: (8) Leukocytosis: PLAN: Plan 1. Generalized weakness and debility with diffuse lymphadenopathy concerning for possible lymphoma ? Given the splenomegaly and lymphadenopathy seen at the outpatient hospital lymphomas of concern ? He continues to be anemic with negative stool occult, he is not mounting a anticipated response as his reticulocytes are low ? LDH was elevated as is his calcium is improving with IV fluids, direct bili is slightly elevated we will check a haptoglobin ? B12 and folate are normal, but uric acid is high at 9.6 ? Iron studies do not indicate an iron deficiency anemia, his anemia is potentially hemolytic ? His leukocytosis is likely related to clonal expansion if this is a lymphoma, will continue to hold off of any antibiotics ? General surgery will obtain a biopsy of his lymph node, and will consult gastroenterology for possible scope for this despite the negative guaiac and will also consult oncology/hematology ? Hemoglobin is up to 6.9 so we will transfuse 1 unit 2. Severe malnutrition ? Consult nutrition 3. BPH ? Stable ? History of TURP as he is allergic to Proscar and Flomax 4. Anxiety ? Stable ? Continue with Xanax DVT: Lovenox Charges/Coding Visit Charges Inpatient E&M: 57904 Subs Hosp L2
[2022-08-17] MEDS: Lactated Ringers 1,000 ML 70 ML IV ×2 (10:45→21:13)
--- NOTE | 2022-08-17 12:32 | CASEMGMT ---
Social Work Pt states he does have a Living Will and Health Care POA naming his Corrine Garcia. Pt made aware documents are not on file and SW requested they be brought in for scanning into the EMR. DIXON Dubois
[2022-08-17 13:25] LABS: Pathologist Review Reviewed
--- NOTE | 2022-08-17 14:10 | CASEMGMT ---
JUAN ARANGO Assessment: Face to Face with pt for initial transition planning/care coordination assessment. RN NBA introduced self and role at [facility], pt voices understanding and consents to assessment. Pt is A/O x4 and answers all questions appropriately at this time. Pt at bedside and pt agreeable to assessment with . Care providers, pharmacy, and demographics verified/updated. Admitting Dx: generalized weakness/LAD PCP:[facility] Specialists:ester Nowak [facility]acy:[facility] Insurance: [facility] Prescription Benefit: no LNOK: Taj Garcia, Living Arrangements: Pt lives with in a two story home with 1 step to enter. Pt reports he was I in ADL's prior to hospitalization and denies concerns at home. Transportation: Pt drives self and denies concerns with transportation. DME/HHC/SNF: Pt has canes at home and grab bars in the bathroom. Pt denies hx of HHC or SNF stays. Pt states no concerns with going home at time of dc. Pt states no further concerns/needs. CM to follow. Advised pt to ask CM if any further question/concerns/needs arise, voices understanding. Pt Goal: Home Plan: Home, therapy evals pending. Pt leaving room for EGD at end of assessment, JUAN ARANGO to follow.
--- NOTE | 2022-08-17 15:19 | NURSING ---
1415-pt off unit via bed for procedure
--- NOTE | 2022-08-17 15:39 | OP.EGD_ITS ---
Patient Name: Wilmer Garcia Procedure Date: 08/17/2022 2:38 PM Date of : 1950 Age: 72 Procedure: Upper GI endoscopy Indications: Iron deficiency anemia Providers: Charles Avilez DO Medicines: Monitored Anesthesia Care Patient Profile: This is a 72 year old male. Refer to note in patient chart for documentation of history and physical. Patient has symptoms of acute epigastric abdominal pain and acute nausea. Complications: No immediate complications. Procedure: Pre-Anesthesia Assessment: - Prior to the procedure, a History and Physical was performed, and patient medications and allergies were reviewed. The patient is competent. The risks and benefits of the procedure and the sedation options and risks were discussed with the patient. All questions were answered and informed consent was obtained. Patient identification and proposed procedure were verified by the physician in the pre-procedure area. Mental Status Examination: alert and oriented. Airway Examination: normal oropharyngeal airway and neck mobility. Respiratory Examination: clear to auscultation. CV Examination: normal. Prophylactic Antibiotics: The patient does not require prophylactic antibiotics. Prior Anticoagulants: The patient has taken no previous anticoagulant or antiplatelet agents. After reviewing the risks and benefits, the patient was deemed in satisfactory condition to undergo the procedure. The anesthesia plan was to use monitored anesthesia care (MAC). Immediately prior to administration of medications, the patient was re-assessed for adequacy to receive sedatives. The heart rate, respiratory rate, oxygen saturations, blood pressure, adequacy of pulmonary ventilation, and response to care were monitored throughout the procedure. The physical status of the patient was re-assessed after the procedure. After obtaining informed consent, the endoscope was passed under direct vision. Throughout the procedure, the patient's blood pressure, pulse, and oxygen saturations were monitored continuously. The gastroscope was introduced through the mouth, and advanced to the second part of duodenum. The upper GI endoscopy was accomplished without difficulty. The patient tolerated the procedure well. Scope In: 3:26:01 PM Scope Out: 3:28:04 PM Total Procedure Duration Time 0 hours 2 minutes 3 seconds Findings: The Z-line was variable and was found 39 cm from the incisors. A medium-sized hiatal hernia was present. No other significant abnormalities were identified in a careful examination of the stomach. The second portion of the duodenum was normal. Impression: - Z-line variable, 39 cm from the incisors. - Medium-sized hiatal hernia. - Normal second portion of the duodenum. - No specimens collected. Recommendation: - Return patient to [facility] for ongoing care. - Resume regular diet. - Continue present medications. Procedure Code(s): --- Professional --- 14191, Esophagogastroduodenoscopy, flexible, transoral; diagnostic, including collection of specimen(s) by brushing or washing, when performed (separate procedure) CPT copyright 2017 [employer]. All rights reserved. The codes documented in this report are preliminary and upon computer language coder review may be revised to meet current compliance requirements. Charles Avilze DO 08/17/2022 3:39:11 PM This report has been signed electronically. Number of Addenda: 0 Note Initiated On: 08/17/2022 2:38 PM
--- NOTE | 2022-08-17 15:40 | OP.CCLET_ITS ---
08/17/2022 Raymond Cotton Re : Upper GI endoscopy procedure for Wilmer Zelayar Andrew This procedure was performed on Wednesday, August 17, 2022. My impressions and recommendations are as follows: Impressions : - Z-line variable, 39 cm from the incisors. - Medium-sized hiatal hernia. - Normal second portion of the duodenum. - No specimens collected. Recommendations : - Return patient to hospital [facility] for ongoing care. - Resume regular diet. - Continue present medications. My findings are described in the full procedure note, which is enclosed. If I can be of further assistance, please feel free to contact me at . Sincerely, Charles Avilez, 08/17/2022 3:39:11 PM This report has been signed electronically.
--- NOTE | 2022-08-17 16:31 | EX.PCM.CON.S ---
Assessment & Plan Assessment/Plan (1) Diffuse lymphadenopathy: PLAN: This is a 72-year-old male, previously healthy aside from prior stroke deficits related to dysarthria, who presents with recent onset of B type symptoms and diffuse nontender lymphadenopathy in the past 1 week. Surgery is asked to evaluate patient for possible lymph node biopsy. Patient was evaluated at bedside and, although the left axillary lymph node is larger than the other kim basins, this node appears to be located much deeper than what is found particularly along the right jugular chain. This impression was shared with both patient and with Dr. Nowak of oncology. Mr. Garcia and his family simply want a diagnosis and Dr. Nowak confirmed his acceptance of this approach. We will wait further anemia work-up per GI and hospitalist, but tentatively plan for excisional biopsy of right jugular lymph node under MAC sedation in the OR on 08/20/2022 at 1330. Patient should be kept n.p.o. appropriately. HPI Consult Data Date of Consult: 08/17/22 HPI Narrative Reason for Consultation: New lymphadenopathy and request for lymph node biopsy HPI Narrative: ISABEL GARCIA, is a 72 M who presented to [facility] ER after a visit with Dr. Nowak of oncology yesterday and was admitted for newly diagnosed anemia. He is currently pending diagnostic upper and lower endoscopy with gastroenterology. General surgery was consulted to consider possible excisional lymph node biopsy to assist with diagnosis of patient's recent symptoms. Patient and his spouse provide the majority of the history and relate that he has been experiencing symptoms of fatigue, night sweats, bowel changes, and has observed signs of painless lymphadenopathy. Mr. Garcia reports all these changes to be rather sudden over the last 1 week. He notes that he was in the shower when he first noticed that his neck lymph nodes were swollen. Mr. Garcia carries a diagnosis of history of CVA, but has minimal residual deficits?only true deficit acknowledged was slight speech deficit. [facility] Medical History Hx of completed stroke Urinary hesitancy Home Medications alprazolam 0.5 mg tablet 0.5 mg PO TID PRN Anxiety 08/16/22 [History Last Taken 08/15/22] ferrous gluconate 240 mg (27 mg iron) tablet (Ferate) 65 mg PO DAILY supplement 08/16/22 [History Last Taken 08/16/22] Allergy/AdvReac Type Severity Reaction Status Date / Time diphenhydramine Allergy PT UNSURE Verified 08/16/22 14:11 [From Benadryl] OF REACTION finasteride AdvReac Other Verified 08/16/22 14:12 tamsulosin AdvReac Other Verified 08/16/22 14:12 Family History Brother Cancer colon Mother Cancer skin Father Cancer skin Surgical History History of transurethral resection of bladder tumor (TURBT) Social History (Updated 08/16/22 @ 18:[address] Gely Blake DO) household members: spouse housing: house Smoking Status: Never smoker Smokeless tobacco user: chewing tobacco alcohol intake: never substance use type: does not use Physical Exam Const alert, oriented x3 and no apparent distress General Appearance: cooperative and well kempt Neck Neck Narrative: Bilateral cervical lymphadenopathy that is nontender with palpation. Lymph Lymphatic Narrative: Bilateral cervical lymphadenopathy, deep left axillary lymphadenopathy, moderately deep left inguinal lymphadenopathy. All of the above locations are nontender with palpation. Lab / Micro Data Result Diagrams: 08/17/22 06:00 08/17/22 06:00 Labs: Laboratory Results - last 24 hr 08/16/22 15:45: Ammonia 43.0 H, B-Natriuretic Peptide 114.6 H 08/16/22 15:45: Uric Acid 9.6 H, Iron 154, TIBC 155 L, Iron Saturation 99.4 H, Ferritin 1352 H, Lactate Dehydrogenase 408 H, Folate 9.40 08/16/22 15:55: Urine RBC 0 SEEN, Urine WBC 0-5 SEEN, Ur Squamous Epith Cells 0 SEEN, Urine Bacteria 0 SEEN, Hyaline Casts 0-5 SEEN, Urine Mucus 0 SEEN 08/16/22 17:40: PT 15.2 H, INR 1.2, APTT 27.3 08/16/22 17:40: Blood Type A POSITIVE, Antibody Screen POSITIVE H 08/16/22 17:40: Crossmatch See Detail 08/16/22 19:30: Retic Count 0.17 L, Immature Retic Fraction 1.70 L, Retic Hgb Equivalent 32.0 08/16/22 20:34: Vitamin B12 504 08/17/22 06:00: WBC 15.8 H, RBC 2.40 L, Hgb 6.9 L, Hct 20.6 L, MCV 85.8, MCH 28.8, MCHC 33.5, RDW Std Deviation 43.1, RDW Coeff of Enoc 13.8, Plt Count 293, MPV 9.8, Immature Gran % (Auto) 0.600, Neut % (Auto) 17.3 L, Lymph % (Auto) 65.9 H, [place] % (Auto) 15.2 H, Eos % (Auto) 0.2, Baso % (Auto) 0.8, Absolute Neuts (auto) 2.7, Absolute Lymphs (auto) 10.40 H, Nucleated RBC % 0, Diff Path Review Reviewed, Atypical Lymphocytes SCANNED 08/17/22 06:00: Sodium 140, Potassium 4.0, Chloride 106, Carbon Dioxide 29.0, Anion Gap 5, BUN 44 H, Creatinine 1.13, Estim Creat Clear Calc 65.81, Est GFR (MDRD) Af Amer 82, Est GFR (MDRD) Non-Af 68, BUN/Creatinine Ratio 38.9 H, Glucose 125 H, Calcium 11.3 H, Phosphorus 3.5, Magnesium 2.0, Total Bilirubin 0.90, AST 20, ALT 24, Alkaline Phosphatase 106, Total Protein 6.1 L, Albumin 2.4 L, Globulin 3.7, Albumin/Globulin Ratio 0.6 L, TSH 2.96 Micro: Microbiology 08/16/22 16:30 Stool Stool Occult Blood (VELVET) - Final
[2022-08-17] MEDS: Ensure Plus High Protein 120 ML LIQUID PO ×2 (16:59→21:12)
[2022-08-17] MEDS: Enoxaparin 40 MG/0.4 ML Syringe SC (16:59)
[2022-08-17] MEDS: Allopurinol 100 MG Tablet PO (16:59)
[2022-08-17] MEDS: ALPRAZolam 0.5 MG Tablet PO (21:13)
[2022-08-18] VITALS (9 sets, daily range): BP systolic 117–146; BP diastolic 70–75; PULSE 91–98; RESP 18–24; TEMP 36.5–37.2; O2SAT 94–100
[2022-08-18] MEDS: ALPRAZolam 0.5 MG Tablet PO ×2 (05:40→14:40)
[2022-08-18 07:14] LABS: Absolute Lymphocyte Count 15.21 X10^3/uL (0.83-4.51); Absolute Neutrophil Count 2.3 X10^3/uL (2.0-7.7); Basophil# 0.08 X10^3/uL; Basophil% 0.4 % (0-1); Eosinophil# 0.03 X10^3/uL; Eosinophils% 0.2 % (0-5); Hematocrit 18.6 % (40-54); Hemoglobin 6.1 g/dL (13.0-16.5); Lymphocyte # 15.21 X10^3/ul (0.83-4.51); Lymphocyte % 79.3 % (19-41); Mean Corp Hgb Conc 32.8 g/dL (32-36); Mean Corpuscular Hgb 28.6 pg (27.0-32.0); Mean Corpuscular Volume 87.3 fL (80-94); Mean Platelet Vol. 9.8 fl (6.2-12.0); Monocyte# 1.47 X10^3/uL; Monocyte% 7.7 % (0-10); NRBC Flagged by Analyzer 0.3 % (0-5); Neutrophil # 2.31 X10^3/uL (2.7-7.7); POSITIVE DIFFERENTIAL YES; POSITIVE MORPHOLOGY YES; Platelet Count 289 K/mm3 (150-450); RBC Distribution Width CV 13.7 % (11.6-14.6); RBC Distribution Width SD 43.4 fl (35.1-43.9); Red Blood Count 2.13 M/mm3 (4.6-6.2); White Blood Count 19.2 K/mm3 (4.4-11.0)
[2022-08-18 07:18] LABS: Differential Indicated SCAN CRITERIA MET
[2022-08-18 07:40] LABS: Anion Gap 6 (5-15); BUN 45 mg/dL (7-18); BUN/Creat Ratio 40.2 RATIO (10-20); Calcium,Total 10.7 mg/dL (8.5-10.1); Chloride 106 mmol/L (98-107); Creatinine, Serum 1.12 mg/dL (0.70-1.30); EST Glomerular Filtration Rate 69 mL/min (>60); Est Glom Filt Rate - Afr Amer 83 mL/min (>60); Glucose 128 mg/dL (74-106); Sodium Level 140 mmol/L (136-145)
[2022-08-18] MEDS: Allopurinol 100 MG Tablet PO (08:58)
[2022-08-18] MEDS: Ensure Plus High Protein 120 ML LIQUID PO (08:59)
--- NOTE | 2022-08-18 09:10 | PCM.PN.SRG ---
Subjective Subjective Patient has no complaints currently. Objective Data Objective Data Vital Signs: Vital Signs Temp Pulse Resp BP Pulse Ox O2 Del Method 98.4 F 96 18 117/71 98 Room Air 08/18/22 08:43 08/18/22 08:43 08/18/22 08:43 08/18/22 08:43 08/18/22 08:43 08/18/22 08:43 Oxygen Delivery Method Room Air Weight: 187 lb 9.814 oz Body Mass Index (BMI) 25.4 Intake & Output: Intake and Output for Last 24 Hours 08/16/22 08/17/22 08/18/22 23:59 23:59 23:59 Intake Total 2632.67 / 2832.67 200 / 200 Output Total 300 / 300 Balance 2332.67 / 2532.67 200 / 200 Lab / Micro Data Result Diagrams: 08/18/22 06:49 08/18/22 06:49 Labs: Laboratory Results - last 24 hr 08/16/22 17:40: Blood Type A POSITIVE, Antibody Screen POSITIVE H, Antibody Identification WARM AUTOANTIBODY 08/16/22 17:40: Crossmatch See Detail 08/16/22 17:40: Antigen Identification E ANTIGEN - NEGATIVE 08/17/22 06:00: Diff Path Review Reviewed 08/18/22 06:49: WBC 19.2 H, RBC 2.13 L, Hgb 6.1 L, Hct 18.6 L, MCV 87.3, MCH 28.6, MCHC 32.8, RDW Std Deviation 43.4, RDW Coeff of Enoc 13.7, Plt Count 289, MPV 9.8, Immature Gran % (Auto) 0.400, Neut % (Auto) 12.0 L, Lymph % (Auto) 79.3 H, [place] % (Auto) 7.7, Eos % (Auto) 0.2, Baso % (Auto) 0.4, Absolute Neuts (auto) 2.3, Absolute Lymphs (auto) 15.21 H, Nucleated RBC % 0.3 08/18/22 06:49: Sodium 140, Potassium 4.0, Chloride 106, Carbon Dioxide 28.0, Anion Gap 6, BUN 45 H, Creatinine 1.12, Estim Creat Clear Calc 66.40, Est GFR (MDRD) Af Amer 83, Est GFR (MDRD) Non-Af 69, BUN/Creatinine Ratio 40.2 H, Glucose 128 H, Calcium 10.7 H Micro: Microbiology 08/16/22 16:30 Stool Stool Occult Blood (VELVET) - Final Physical Exam Narrative Right neck and axillary lymphadenopathy Const oriented x3 Resp normal respiratory effort Cardio regular rate Assessment & Plan Assessment/Plan (1) Diffuse lymphadenopathy: PLAN: Patient is scheduled with Dr. Serrano for excisional biopsy of right jugular lymph node under MAC sedation in the OR on 08/20/2022 at 1330. We will plan to make patient n.p.o. midnight 08/19. Beena Beltran M.D. Pager: [phone] [facility] [address] [place] [address], [facility], [address] [place] [address] Office: [phone] Charges/Coding Visit Charges Inpatient E&M: 11414 Subs Hosp L2
[2022-08-18 09:38] LABS: Atypical Lymphocyte 1+ %; Differential Comment SCANNED; Reactive Lymphocyte 1+
--- NOTE | 2022-08-18 10:06 | PN.HOSP_ITS ---
Subjective Subjective Feels a little bit better today Objective Data Objective Data Vital Signs: Vital Signs Temp Pulse Resp BP Pulse Ox O2 Del Method 98.4 F 96 18 117/71 98 Room Air 08/18/22 08:43 08/18/22 08:43 08/18/22 08:43 08/18/22 08:43 08/18/22 08:43 08/18/22 08:43 Oxygen Delivery Method Room Air Weight: 187 lb 9.814 oz Body Mass Index (BMI) 25.4 Intake & Output: Intake and Output for Last 24 Hours 08/17/22 08/18/22 08/19/22 03:59 03:59 03:59 Intake Total 500 / 500 2332.67 / 2332.67 Output Total 300 / 300 0 / 0 Balance 200 / 200 2332.67 / 2332.67 Lab / Micro Data Result Diagrams: 08/18/22 06:49 08/18/22 06:49 Labs: Laboratory Results - last 24 hr 08/16/22 17:40: Blood Type A POSITIVE, Antibody Screen POSITIVE H, Antibody Identification WARM AUTOANTIBODY 08/16/22 17:40: Crossmatch See Detail 08/16/22 17:40: Antigen Identification E ANTIGEN - NEGATIVE 08/17/22 06:00: Diff Path Review Reviewed 08/18/22 06:49: WBC 19.2 H, RBC 2.13 L, Hgb 6.1 L, Hct 18.6 L, MCV 87.3, MCH 28.6, MCHC 32.8, RDW Std Deviation 43.4, RDW Coeff of Enoc 13.7, Plt Count 289, MPV 9.8, Immature Gran % (Auto) 0.400, Neut % (Auto) 12.0 L, Lymph % (Auto) 79.3 H, [place] % (Auto) 7.7, Eos % (Auto) 0.2, Baso % (Auto) 0.4, Absolute Neuts (auto) 2.3, Absolute Lymphs (auto) 15.21 H, Nucleated RBC % 0.3, Differential Comment SCANNED, Atypical Lymphocytes 1+, Reactive Lymphocytes 1+ 08/18/22 06:49: Sodium 140, Potassium 4.0, Chloride 106, Carbon Dioxide 28.0, Anion Gap 6, BUN 45 H, Creatinine 1.12, Estim Creat Clear Calc 66.40, Est GFR (MDRD) Af Amer 83, Est GFR (MDRD) Non-Af 69, BUN/Creatinine Ratio 40.2 H, Glucose 128 H, Calcium 10.7 H Micro: Microbiology 08/16/22 16:30 Stool Stool Occult Blood (VELVET) - Final Physical Exam Narrative General: Alert, Oriented x3, Cooperative, No apparent distress, diaphoretic HEENT: Atraumatic, PERRLA, EOMI, Normocephalic Oral: Moist Mucosa Neck: Supple, No JVD, lymphadenopathy Lungs: Diminished, Normal air movement, No rhonchi, No wheeze, No rales Cardiovascular: Regular rate, Regular Rhythm, Normal S1, Normal S2, No murmurs Abdomen: Soft, Non Tender, slightly distended, No Hepato-splenomegaly Extremities: No edema, Capillary Refill Less than 3 Seconds Skin: No rashes, No breakdown, pale Musculoskeletal: No Tenderness to Palpation of Joints or Extremities Neurological: Moves all extremities, sensation intact Psych/Mental Status: Normal Affect, Appropriate Assessment & Plan Assessment/Plan (1) Failure to thrive syndrome, adult: (2) SOB (shortness of breath): (3) Diffuse lymphadenopathy: (4) Generalized weakness: (5) Anemia: (6) Dehydration: (7) Hypercalcemia: (8) Leukocytosis: PLAN: Plan 1. Generalized weakness and debility with diffuse lymphadenopathy concerning for possible lymphoma ? Given the splenomegaly and lymphadenopathy seen at the outpatient hospital lymphomas of concern ? He continues to be anemic with negative stool occult, he is not mounting a anticipated response as his reticulocytes are low indicating potential marrow failure ? LDH was elevated as is his calcium is improving with IV fluids, direct bili is slightly elevated we will check a haptoglobin ? B12 and folate are normal, but uric acid is high at 9.6, will start all opurinol ? Iron studies do not indicate an iron deficiency anemia, his anemia is potentially hemolytic ? His leukocytosis is likely related to clonal expansion if this is a lymphoma, will continue to hold off of any antibiotics ? General surgery will obtain a biopsy of his lymph node ? He did have an EGD which was negative for any source of bleeding however his hemoglobin is now down to 6.1, we were unable to find him 100% compatible blood however given his continued drop in hemoglobin I discussed with him the risks and benefits of being transfused and he agreed to receive 1 unit. The concern with his expanding leukocytosis and increasing lymphocyte count, I may need to start steroids prior to biopsy. Oncology does not feel that they need to see him until after biopsy results 2. Severe malnutrition ? Consult nutrition 3. BPH ? Stable ? History of TURP as he is allergic to Proscar and Flomax 4. Anxiety ? Stable ? Continue with Xanax DVT: SCDs Charges/Coding Visit Charges Inpatient E&M: 39022 Subs Hosp L2
[2022-08-18 11:00] LABS: Haptoglobin 94 mg/dL (34-355)
[2022-08-18] MEDS: Lactated Ringers 1,000 ML 70 ML IV (11:36)
[2022-08-18] MEDS: 0.9% Saline Lock 10 ML Syringe IV ×2 (20:31→22:45)
[2022-08-19] VITALS (10 sets, daily range): BP systolic 113–146; BP diastolic 67–81; PULSE 74–100; RESP 18–22; TEMP 36.5–36.9; O2SAT 95–98
[2022-08-19] MEDS: Lactated Ringers 1,000 ML 70 ML IV ×2 (03:21→17:35)
[2022-08-19 05:28] LABS: Absolute Lymphocyte Count 15.29 X10^3/uL (0.83-4.51); Absolute Neutrophil Count 2.5 X10^3/uL (2.0-7.7); Basophil# 0.04 X10^3/uL; Basophil% 0.2 % (0-1); Eosinophil# 0.04 X10^3/uL; Eosinophils% 0.2 % (0-5); Hematocrit 19.2 % (40-54); Hemoglobin 6.5 g/dL (13.0-16.5); Lymphocyte # 15.29 X10^3/ul (0.83-4.51); Lymphocyte % 82.9 % (19-41); Mean Corp Hgb Conc 33.9 g/dL (32-36); Mean Corpuscular Hgb 29.4 pg (27.0-32.0); Mean Corpuscular Volume 86.9 fL (80-94); Mean Platelet Vol. 9.6 fl (6.2-12.0); Monocyte# 0.55 X10^3/uL; NRBC Flagged by Analyzer 0 % (0-5); Neutrophil # 2.48 X10^3/uL (2.7-7.7); Neutrophil % 13.4 % (47-70); POSITIVE DIFFERENTIAL YES; POSITIVE MORPHOLOGY YES; Platelet Count 290 K/mm3 (150-450); RBC Distribution Width CV 13.7 % (11.6-14.6); RBC Distribution Width SD 42.9 fl (35.1-43.9); Red Blood Count 2.21 M/mm3 (4.6-6.2); White Blood Count 18.5 K/mm3 (4.4-11.0)
[2022-08-19 05:44] LABS: Anion Gap 5 (5-15); BUN 47 mg/dL (7-18); BUN/Creat Ratio 43.1 RATIO (10-20); Calcium,Total 10.9 mg/dL (8.5-10.1); Chloride 106 mmol/L (98-107); Creatinine, Serum 1.09 mg/dL (0.70-1.30); EST Glomerular Filtration Rate 71 mL/min (>60); Est Glom Filt Rate - Afr Amer 86 mL/min (>60); Estimated Creatinine Clearance 68.23 ml/min; Glucose 126 mg/dL (74-106); Potassium 4.3 mmol/L (3.5-5.1); Sodium Level 140 mmol/L (136-145)
[2022-08-19 05:48] LABS: Differential Indicated SCAN CRITERIA MET
[2022-08-19 06:27] LABS: Differential Comment SCANNED
[2022-08-19] MEDS: Ensure Plus High Protein 120 ML LIQUID PO ×2 (08:04→14:15)
[2022-08-19] MEDS: Allopurinol 100 MG Tablet PO (08:04)
--- NOTE | 2022-08-19 08:33 | PCM.PN.SRG ---
Subjective Subjective Patient has no complaints. Objective Data Objective Data Vital Signs: Vital Signs Temp Pulse Resp BP Pulse Ox O2 Del Method O2 Flow Rate 97.9 F 93 18 132/75 H 97 Room Air 1 08/19/22 07:57 08/19/22 07:57 08/19/22 07:57 08/19/22 07:57 08/19/22 07:57 08/19/22 07:57 08/18/22 19:24 Oxygen Flow Rate (L/min) 1 Oxygen Delivery Method Room Air Weight: 187 lb 9.814 oz Body Mass Index (BMI) 25.4 Intake & Output: Intake and Output for Last 24 Hours 08/17/22 08/18/22 08/19/22 23:59 23:59 23:59 Intake Total 2632.67 / 2832.67 2188 / 2188 323.17 / 323.17 Output Total 300 / 300 Balance 2332.67 / 2532.67 2188 / 2188 323.17 / 323.17 Lab / Micro Data Result Diagrams: 08/19/22 04:52 08/19/22 04:52 Labs: Laboratory Results - last 24 hr 08/16/22 17:40: Crossmatch See Detail 08/17/22 06:00: Haptoglobin 94 08/18/22 06:49: Differential Comment SCANNED, Atypical Lymphocytes 1+, Reactive Lymphocytes 1+ 08/19/22 04:52: WBC 18.5 H, RBC 2.21 L, Hgb 6.5 L, Hct 19.2 L, MCV 86.9, MCH 29.4, MCHC 33.9, RDW Std Deviation 42.9, RDW Coeff of Enoc 13.7, Plt Count 290, MPV 9.6, Immature Gran % (Auto) 0.300, Neut % (Auto) 13.4 L, Lymph % (Auto) 82.9 H, [place] % (Auto) 3.0, Eos % (Auto) 0.2, Baso % (Auto) 0.2, Absolute Neuts (auto) 2.5, Absolute Lymphs (auto) 15.29 H, Nucleated RBC % 0, Differential Comment SCANNED 08/19/22 04:52: Sodium 140, Potassium 4.3, Chloride 106, Carbon Dioxide 29.0, Anion Gap 5, BUN 47 H, Creatinine 1.09, Estim Creat Clear Calc 68.23, Est GFR (MDRD) Af Amer 86, Est GFR (MDRD) Non-Af 71, BUN/Creatinine Ratio 43.1 H, Glucose 126 H, Calcium 10.9 H Micro: Microbiology 08/16/22 16:30 Stool Stool Occult Blood (VELVET) - Final Physical Exam Narrative Bilateral cervical lymphadenopathy, larger on right Const oriented x3 and no apparent distress Resp normal respiratory effort Cardio regular rate Assessment & Plan Assessment/Plan (1) Diffuse lymphadenopathy: PLAN: Patient is scheduled with Dr. Serrano for excisional biopsy of right jugular lymph node under MAC sedation in the OR on 08/20/2022 at 1330. order in for n.p.o. midnight 08/19. Beena Beltran M.D. Pager: [phone] [facility] [address] [place] [address], [facility], [address] [place] [address] Office: [phone] Charges/Coding Visit Charges Inpatient E&M: 10313 Subs Hosp L2
--- NOTE | 2022-08-19 09:36 | PCM.PN.HOSP ---
Subjective Subjective He tolerated the blood transfusion yesterday with incomplete match, will transfuse again today as he is still below 7 Objective Data Objective Data Vital Signs: Vital Signs Temp Pulse Resp BP Pulse Ox O2 Del Method O2 Flow Rate 97.9 F 93 18 132/75 H 97 Room Air 1 08/19/22 07:57 08/19/22 07:57 08/19/22 07:57 08/19/22 07:57 08/19/22 07:57 08/19/22 07:57 08/18/22 19:24 Oxygen Flow Rate (L/min) 1 Oxygen Delivery Method Room Air Weight: 187 lb 9.814 oz Body Mass Index (BMI) 25.4 Intake & Output: Intake and Output for Last 24 Hours 08/18/22 08/19/22 08/20/22 03:59 03:59 03:59 Intake Total 2332.67 / 2332.67 2311.17 / 2311.17 Output Total 0 / 0 Balance 2332.67 / 2332.67 2311.17 / 2311.17 Lab / Micro Data Result Diagrams: 08/19/22 04:52 08/19/22 04:52 Labs: Laboratory Results - last 24 hr 08/16/22 17:40: Crossmatch See Detail 08/16/22 17:40: Crossmatch See Detail 08/17/22 06:00: Haptoglobin 94 08/18/22 06:49: Differential Comment SCANNED, Atypical Lymphocytes 1+, Reactive Lymphocytes 1+ 08/19/22 04:52: WBC 18.5 H, RBC 2.21 L, Hgb 6.5 L, Hct 19.2 L, MCV 86.9, MCH 29.4, MCHC 33.9, RDW Std Deviation 42.9, RDW Coeff of Enoc 13.7, Plt Count 290, MPV 9.6, Immature Gran % (Auto) 0.300, Neut % (Auto) 13.4 L, Lymph % (Auto) 82.9 H, [place] % (Auto) 3.0, Eos % (Auto) 0.2, Baso % (Auto) 0.2, Absolute Neuts (auto) 2.5, Absolute Lymphs (auto) 15.29 H, Nucleated RBC % 0, Differential Comment SCANNED 08/19/22 04:52: Sodium 140, Potassium 4.3, Chloride 106, Carbon Dioxide 29.0, Anion Gap 5, BUN 47 H, Creatinine 1.09, Estim Creat Clear Calc 68.23, Est GFR (MDRD) Af Amer 86, Est GFR (MDRD) Non-Af 71, BUN/Creatinine Ratio 43.1 H, Glucose 126 H, Calcium 10.9 H Micro: Microbiology 08/16/22 16:30 Stool Stool Occult Blood (VELVET) - Final Physical Exam Narrative General: Alert, Oriented x3, Cooperative, No apparent distress, diaphoretic HEENT: Atraumatic, PERRLA, EOMI, Normocephalic Oral: Moist Mucosa Neck: Supple, No JVD, lymphadenopathy Lungs: Diminished, Normal air movement, No rhonchi, No wheeze, No rales Cardiovascular: Regular rate, Regular Rhythm, Normal S1, Normal S2, No murmurs Abdomen: Soft, Non Tender, slightly distended, No Hepato-splenomegaly Extremities: No edema, Capillary Refill Less than 3 Seconds Skin: No rashes, No breakdown, pale Musculoskeletal: No Tenderness to Palpation of Joints or Extremities Neurological: Moves all extremities, sensation intact Psych/Mental Status: Normal Affect, Appropriate Assessment & Plan Assessment/Plan (1) Failure to thrive syndrome, adult: (2) SOB (shortness of breath): (3) Diffuse lymphadenopathy: (4) Generalized weakness: (5) Anemia: (6) Dehydration: (7) Hypercalcemia: (8) Leukocytosis: PLAN: Plan 1. Generalized weakness and debility with diffuse lymphadenopathy concerning for possible lymphoma ? Given the splenomegaly and lymphadenopathy seen at the outpatient hospital lymphomas of concern ? He continues to be anemic with negative stool occult, he is not mounting a anticipated response as his reticulocytes are low indicating potential marrow failure ? LDH was elevated as is his calcium is improving with IV fluids, direct bili is slightly elevated ? B12 and folate are normal, but uric acid is high at 9.6, will start allopurinol ? Iron studies do not indicate an iron deficiency anemia, his haptoglobin is normal ? His leukocytosis is likely related to clonal expansion if this is a lymphoma, will continue to hold off of any antibiotics ? General surgery will obtain a biopsy of his lymph node ? He did have an EGD which was negative for any source of bleeding however his hemoglobin is now down to 6.1, we were unable to find him 100% compatible blood however given his continued drop in hemoglobin I discussed with him the risks and benefits of being transfused and he agreed to receive 1 unit. The concern with his expanding leukocytosis and increasing lymphocyte count, I may need to start steroids prior to biopsy. Oncology does not feel that they need to see him until after biopsy results 2. Severe malnutrition ? Consult nutrition 3. BPH ? Stable ? History of TURP as he is allergic to Proscar and Flomax 4. Anxiety ? Stable ? Continue with Xanax DVT: SCDs Charges/Coding Visit Charges Inpatient E&M: 07955 Subs Hosp L2
--- NOTE | 2022-08-19 13:04 | NURSING ---
d/t shortages on tubing/incompatablities with current ivacs etc blood infusing via dial- a- flow
--- NOTE | 2022-08-19 13:12 | NURSING ---
blood now flushing with NS
[2022-08-19] MEDS: ALPRAZolam 0.5 MG Tablet PO (14:15)
--- NOTE | 2022-08-19 15:37 | ECHOD_ITS ---
Version 2 Reason For Study: Possible Lymphoma/ baseline prior to chemo Procedure This was a 2D Doppler, Color Flow transthoracic echocardiogram. Myocardial strain analysis was performed in this exam to aid in the assessment of cardiac function. Exam performed portable in patient room. Left Ventricle Mildly dilated left ventricle. The estimated ejection fraction is 25 %. Stage 1 diastolic dysfunction. There is severe global hypokinesis of the left ventricle. Spontaneous contrast noted. Right Ventricle Normal RV size. Normal systolic function. Atria The left atrium is moderately enlarged. Normal right atrium. Mitral Valve Normal mitral valve. Tricuspid Valve Normal tricuspid valve. Unable to estimate RV systolic pressure due to inadequate jet, pulmonary artery pressure probably normal. Aortic Valve Trisinus/trileaflet aortic valve. Mild focal aortic valve calcification. Mild (1+) aortic valve insufficiency. Pulmonic Valve Normal pulmonic valve. Trivial pulmonic valve insufficiency. Great Vessels Mildly dilated aortic root. The pulmonary artery is normal size. Normal inferior vena cava. Pericardium/Pleural Small pericardial effusion. MMode/2D Measurements & Calculations LVIDd: 5.9 cm IVSd: 0.90 cm Ao root diam: 4.0 cm LVIDs: 5.1 cm LVPWd: 0.93 cm LA dimension: 4.4 cm RVDd: 3.2 cm FS: 13.8 % LAV(MOD-bp): 96.8 ml LVAd ap4: 56.4 cm2 SV(MOD-sp4): 81.6 ml LAV(MOD-bp) Indexed: 46.7 ml/m2 LVLd ap4: 9.8 cm LAV(MOD-sp2): 91.1 ml EDV(MOD-sp4): 265.6 ml LAV(MOD-sp4): 101.0 ml EDV(sp4-el): 277.0 ml LVAs ap4: 43.2 cm2 LVLs ap4: 8.5 cm ESV(MOD-sp4): 183.9 ml ESV(sp4-el): 187.1 ml EF(MOD-sp4): 30.7 % EF(sp4-el): 32.5 % SV(sp4-el): 89.9 ml LA A4 area: 27.0 cm2 RA A4 area: 17.2 cm2 Doppler Measurements & Calculations MV E max daniel: 61.3 cm/sec Lat Peak E' Daniel: 4.9 cm/sec Med Peak E' Daniel: 4.8 cm/sec MV A max daniel: 119.4 cm/sec E/E' lat: 12.6 E/E' med: 12.8 MV E/A: 0.51 MV V2 max: 133.7 cm/sec Ao V2 max: 168.2 cm/sec AI max daniel: 366.3 cm/sec MV max P.1 mmHg Ao max P.3 mmHg AI max P.7 mmHg MV V2 mean: 74.3 cm/sec Ao V2 mean: 113.4 cm/sec AI dec slope: 255.5 cm/sec2 MV mean P.7 mmHg Ao mean P.0 mmHg AI P1/2t: 419.9 msec MV V2 VTI: 22.2 cm Ao V2 VTI: 31.3 cm AV (velocity ratio): 0.79 LV V1 max: 120.4 cm/sec PA V2 max: 144.2 cm/sec LV V1 max P.8 mmHg PA V2 mean: 94.7 cm/sec LV V1 mean P.6 mmHg LV V1 mean: 89.0 cm/sec LV V1 VTI: 24.6 cm ECHO/Echo Complete Interpretation Summary Mildly dilated left ventricle. The estimated ejection fraction is 25 %. Stage 1 diastolic dysfunction. There is severe global hypokinesis of the left ventricle. The left atrium is moderately enlarged. Mildly dilated aortic root. Small pericardial effusion. The global longitudinal strain is moderately abnormal. The global longitudinal strain = -10.3% (abnormal). The global longitudinal strain = -10.3% (abnormal). The global longitudinal str ain is moderately abnormal. Ordering Physician: Ivan Tello Performed By: Lenin Nieves RCS
[2022-08-20] VITALS (14 sets, daily range): BP systolic 96–140; BP diastolic 63–86; PULSE 88–97; RESP 16–22; TEMP 36.2–36.7; O2SAT 88–97; BMI 25.4
--- NOTE | 2022-08-20 | LYMN_PTH ---
PATIENT: ISABEL GRIGGS LOC: MS3 U#:[id number] AGE/SX: 72/M ROOM: [facility] [place]08/16/[address]: Dr. Carlos Moreno MD : [id number] BED: 1 DIS: 08/23/2022 SPEC #: [id number] RECD: 08/20/22 15:04 STATUS: TELMA REQ #: [id number] ROLA: 08/20/22 00:[address]: Boubacar Serrano DEPT: SURGICAL PATHOLOGY RECD BY: Eliana Madison ENTERED: 08/20/22 15:27 SP TYPE: LYMPH NODE OTHR DR: MD Dr. Gely Pichardo DO Dr. Nicholas F Kotsonis, MD Luke Hochstetler, PA Tissues: LYMPH NODE BIOPSY Procedures: Gen Path Consultation (on slides) Frozen Section (charge) Special Stain Group II Surgery Specimen Level IV Imprint (control) HEADER OPERATION: Excision jugular lymph node PRE-OP DIAGNOSIS: Diffuse lymphadenopathy TISSUE SUBMITTED: Jugular lymph node, frozen section FROZEN SECTION DIAGNOSIS Jugular lymph node, biopsy: Lymph node tissue present. AM:january 08/20/2022 Case has been reviewed in consultation with Dr. Ren who concurs with the above diagnosis. IDC:SJ MICROSCOPIC DIAGNOSIS Jugular lymph node, biopsy: Angioimmunoblastic T-cell lymphoma. See comment. AM:january 09/05/2022 COMMENT Immunohistochemistry ([id number]) supports the above diagnosis. This case was seen in consultation with Dr. Blake of [facility] who concurs with the above diagnosis. The complete flow analysis and additional immunohistochemistry performed by [facility] is viewable in EMR. This case was discussed with Dr. Nowak 09/05/[address] Dozier. Case has been reviewed in consultation with Dr. Ren who concurs with the above diagnosis. IDC:SJ MICROSCOPIC DESCRIPTION Slides are reviewed. GROSS DESCRIPTION Received fresh for frozen section consultation labeled with the patient's name is a specimen designated jugular lymph node. The specimen consists of an ovoid fragment of coon tissue measuring 1.4 x 0.8 x 0.8 cm. Field Crop Farmworker portion is submitted for flow cytometry analysis. Field Crop Farmworker touch prep smears (Diff-Quik and paps) are prepared. A artist's representative section is submitted for frozen section consultation as requested. The remainder of the tissue is submitted in one cassette for permanent sections. / AM:january 08/20/2022 TC:0 CPT: 58407, 52907, 16139
--- NOTE | 2022-08-20 | IMM_PTH ---
PATIENT: ISABEL GRIGGS LOC: MS3 U#:[id number] AGE/SX: 72/M ROOM: [facility] [place]16/[address]: Dr. Carlos Moreno MD : 1950 BED: 1 DIS: 08/23/2022 SPEC #: [id number] RECD: 08/22/22 13:15 STATUS: TELMA REQ #: [id number] ROLA: 08/20/22 00:[address]: Boubacar Serrano DEPT: IMMUNOHISTOCHEMISTRY RECD BY: Eliana Madison ENTERED: 08/22/22 13:19 SP TYPE: IMMUNO OTHR DR: MD Dr. Gely Pichardo DO Dr. Nicholas F Kotsonis, MD Luke Hochstetler, PA Tissues: Lymph node of neck, NOS Procedures: BCL-2 (add) BCL-6 (add) CD10 (add) CD138 (add) CD15 (add) CD20 (add) CD23 (add) CD3 (add) CD30 (add) CD43 (add) CD45 (add) CD5 (add) CD79A (add) CYCLIN (add) KAPPA (add) KI-67 (add) LAMBDA (add) P53 (add) MUM1 (add) C-MYC (add) Pankeratin (initial) PHYSICIAN & [place] [id number] SPECIMEN INFORMATION: Tissue Source: Jugular lymph node Clinical Info: Diffuse lymphadenopathy Specimen Number: [id number] #2 CPT code: 49102, 80630 x20 METHODOLOGY: Deparaffinized sections of prefer/formalin-fixed tissue or PAP/DQ stained slides are incubated with monoclonal/polyclonal antibodies/oligonucleotide probes. Localization is made via biotin free immunoperoxidase method. Appropriate controls are performed and reacted as expected. Results on target cell population are indicated in the following table: RESULTS: ANTIBODY / CLONE RESULT Block 2 AE1-3 (AE1/AE3/PCK26) negative CD3 (PS1) positive, T-cells CD5 (SP10) positive, T-cells CD10 (56C6) negative CD15 (MMA) negative CD20 (L26) negative, zonal CD23 (1B12) negative CD30 (Remigio-H2) negative CD43 (L60) positive CD45 (RP2/18) positive CD79a (11E3) negative CD138 (B-A38) negative BCL-2 (bcl-2/100/D5) negative BCL-6 (QP555G/A8) negative Cyclin D1/BCL-1 (SP4) negative MUM1 (MRQ-43) positive C-MYC (Y69) negative [place] (polyclonal) negative Lambda (polyclonal) negative P53 (DO-7) negative Ki-67 (30-9) positive, 60% These tests were developed and their performance characteristics determined by [facility]. They may not have been cleared or approved by the U.S. Food and Drug Administration. The FDA has determined that such clearance or approval is not necessary. The above immunohistochemical/dualISH markers are ordered and reviewed by the Pathologist. INTERPRETATION: Jugular lymph node, biopsy: Consistent with T-cell lymphoma. AM:january 09/05/2022 Case has been reviewed in consultation with Dr. Ren who concurs with the above diagnosis. IDC:SJ
[2022-08-20] MEDS: ALPRAZolam 0.5 MG Tablet PO ×2 (04:38→20:01)
[2022-08-20] MEDS: 0.9% Saline Lock 10 ML Syringe IV ×2 (04:38→11:48)
[2022-08-20 05:28] LABS: Absolute Lymphocyte Count 10.09 X10^3/uL (0.83-4.51); Basophil# 0.03 X10^3/uL; Basophil% 0.2 % (0-1); Eosinophil# 0.02 X10^3/uL; Eosinophils% 0.2 % (0-5); Hematocrit 21.4 % (40-54); Hemoglobin 7.3 g/dL (13.0-16.5); Lymphocyte # 10.09 X10^3/ul (0.83-4.51); Lymphocyte % 79.7 % (19-41); Mean Corp Hgb Conc 34.1 g/dL (32-36); Mean Corpuscular Hgb 29.2 pg (27.0-32.0); Mean Corpuscular Volume 85.6 fL (80-94); Mean Platelet Vol. 9.2 fl (6.2-12.0); Monocyte# 0.49 X10^3/uL; Monocyte% 3.9 % (0-10); NRBC Flagged by Analyzer 0 % (0-5); Neutrophil % 15.8 % (47-70); POSITIVE DIFFERENTIAL YES; POSITIVE MORPHOLOGY YES; Platelet Count 279 K/mm3 (150-450); RBC Distribution Width SD 43.6 fl (35.1-43.9); White Blood Count 12.7 K/mm3 (4.4-11.0)
[2022-08-20 05:44] LABS: Differential Indicated SCAN CRITERIA MET
[2022-08-20 05:57] LABS: Anion Gap 5 (5-15); BUN 42 mg/dL (7-18); BUN/Creat Ratio 33.9 RATIO (10-20); Calcium,Total 10.7 mg/dL (8.5-10.1); Chloride 106 mmol/L (98-107); Creatinine, Serum 1.24 mg/dL (0.70-1.30); EST Glomerular Filtration Rate 61 mL/min (>60); Est Glom Filt Rate - Afr Amer 74 mL/min (>60); Estimated Creatinine Clearance 59.97 ml/min; Glucose 122 mg/dL (74-106); Potassium 4.2 mmol/L (3.5-5.1); Sodium Level 139 mmol/L (136-145)
[2022-08-20] MEDS: Lactated Ringers 1,000 ML 70 ML IV (06:34)
[2022-08-20 06:57] LABS: Hypochromasia 1+
--- NOTE | 2022-08-20 08:43 | PN.HOSP_ITS ---
Reason for Visit Reason for Visit: Diagnoses Anemia, unspecified (08/16/22) Elevated white blood cell count, unspecified (08/16/22) Hypercalcemia (08/16/22) Dehydration (08/16/22) Shortness of breath (08/16/22) Weakness (08/16/22) Generalized enlarged lymph nodes (08/16/22) Adult failure to thrive (08/16/22) Subjective Subjective Patient is a 72-year-old gentleman who presented with progressive generalized weakness. CT of the abdomen and pelvis performed on 08/11/2022 demonstrated generalized adenopathy hepatosplenomegaly and ascites. Admitted to monitored bed for subsequent evaluation Objective Data Objective Data Vital Signs: Vital Signs Temp Pulse Resp BP Pulse Ox O2 Del Method O2 Flow Rate 97.9 F 92 22 H 140/77 H 95 Room Air 1 08/20/22 04:29 08/20/22 04:29 08/20/22 04:29 08/20/22 04:29 08/20/22 04:29 08/20/22 04:29 08/18/22 19:24 Oxygen Flow Rate (L/min) 1 Oxygen Delivery Method Room Air Weight: 85.1 kg Body Mass Index (BMI) 25.4 Intake & Output: Intake and Output for Last 24 Hours 08/18/22 08/19/22 08/20/22 23:59 23:59 23:59 Intake Total 2188 / 2188 1186.34 / 1186.34 908.83 / 908.83 Balance 2188 / 2188 1186.34 / 1186.34 908.83 / 908.83 Lab / Micro Data Result Diagrams: 08/20/22 05:00 08/20/22 05:00 Labs: Laboratory Results - last 24 hr 08/16/22 17:40: Crossmatch See Detail 08/19/22 04:25: Direct Antiglob Test Cancelled 08/20/22 05:00: WBC 12.7 H, RBC 2.50 L, Hgb 7.3 L, Hct 21.4 L, MCV 85.6, MCH 29.2, MCHC 34.1, RDW Std Deviation 43.6, RDW Coeff of Enoc 14.0, Plt Count 279, MPV 9.2, Immature Gran % (Auto) 0.200, Neut % (Auto) 15.8 L, Lymph % (Auto) 79.7 H, [place] % (Auto) 3.9, Eos % (Auto) 0.2, Baso % (Auto) 0.2, Absolute Neuts (auto) 2.0, Absolute Lymphs (auto) 10.09 H, Nucleated RBC % 0, Hypochromasia 1+ 08/20/22 05:00: Sodium 139, Potassium 4.2, Chloride 106, Carbon Dioxide 28.0, Anion Gap 5, BUN 42 H, Creatinine 1.24, Estim Creat Clear Calc 59.97, Est GFR (MDRD) Af Amer 74, Est GFR (MDRD) Non-Af 61, BUN/Creatinine Ratio 33.9 H, Glucose 122 H, Calcium 10.7 H Micro: Microbiology 08/16/22 16:30 Stool Stool Occult Blood (VELVET) - Final Physical Exam Narrative GENERAL: cooperative but frail looking HEENT: Atraumatic; normocephalic EYES; Anicteric, Normal Conjunctiva NECK; supple, normal thyroid, RESPIRATORY: Diminished to auscultation CARDIOVASCULAR: Regular S1 S2, GI: soft, normoactive bowel sounds, : No Renal angle tenderness; EXTREMITIES: No edema, no clubbing, MUSCULOSKELETAL: no muscle wasting NEURO: Awake; no lateralizing signs. SKIN: No Rash PSYCH; Flat affect Assessment & Plan Assessment/Plan (1) Failure to thrive syndrome, adult: (2) SOB (shortness of breath): (3) Diffuse lymphadenopathy: (4) Generalized weakness: (5) Anemia: (6) Dehydration: (7) Hypercalcemia: (8) Leukocytosis: PLAN: Plan Patient is a 72-year-old gentleman who presented with progressive generalized weakness. CT of the abdomen and pelvis performed on 08/11/2022 demonstrated generalized adenopathy hepatosplenomegaly and ascites. Admitted to monitored bed for subsequent evaluation 1. Generalized lymphadenopathy ? With concern for possible lymphoma patient has been admitted to regular [facility] floor consult placed to general surgery plan is for patient to undergo biopsy. Consult placed to heme-onc notes and recommendations reviewed. 2. Anemia ? Probably related to patient underlying suspected malignancy. Patient underwent EGD which did not find any evidence of upper GI bleed. Patient did receive transfusion with 2 unit PRBC. Subsequent monitoring with repeat H&H ordered 3. Severe protein calorie malnutrition ? Evidenced by muscle wasting loss of energy and low appetite. This is possibly related to patient underlying suspected malignancy consult placed to dietitian 4. BPH ? With history of TURP. Patient was not placed on tamsulosin or finasteride due to allergies 5. Anxiety disorder ? Patient is on alprazolam as needed 6. DVT prophylaxis ? Bilateral SCDs Time spent in the patient's overall evaluation,decision-making process, review of diagnostic data, adjustment of management, discussion with other providers, nursing nursing and ancillary staff involved in patient's care documentation, 55 Minutes Charges/Coding Visit Charges Inpatient E&M: 34291 Subs Hosp L3
[2022-08-20] MEDS: Cefazolin 2 GM in 0.9% Normal Saline 100 ML IV (13:54)
--- NOTE | 2022-08-20 14:06 | HP.PCM_ITS ---
History and Physical Date of Admission: 08/20/22 08/17/22 1631 MR#:? [id number] Acct: [id number] Name: ISABEL GARCIA Rep #: [id number] :? 1950 72 From:? Boubacar Serrano MD PCP: EDU Cotton ? Status: ADM IN Location: MS3 TO657-3 Assessment & Plan Assessment/Plan (1) Diffuse lymphadenopathy: PLAN: This is a 72-year-old male, previously healthy aside from prior stroke deficits related to dysarthria, who presents with recent onset of B type symptoms and diffuse nontender lymphadenopathy in the past 1 week.? Surgery is asked to evaluate patient for possible lymph node biopsy.? Patient was evaluated at bedside and, although the left axillary lymph node is larger than the other kim basins, this node appears to be located much deeper than what is found particularly along the right jugular chain.? This impression was shared with both patient and with Dr. Nowak of oncology.? Mr. Garcia and his family simply want a diagnosis and Dr. Nowak confirmed his acceptance of this approach.? We will wait further anemia work-up per GI and hospitalist, but tentatively plan for excisional biopsy of right jugular lymph node under MAC sedation in the OR on 08/20/2022 at 1330.? Patient should be kept n.p.o. appropriately. HPI Consult Data Date of Consult: 08/17/22 HPI Narrative Reason for Consultation: New lymphadenopathy and request for lymph node biopsy HPI Narrative: ISABEL GARCIA, is a 72 M who presented to [facility] ER after a visit with Dr. Nowak of oncology yesterday and was admitted for newly diagnosed anemia.? He is currently pending diagnostic upper and lower endoscopy with gastroenterology.? General surgery was consulted to consider possible excisional lymph node biopsy to assist with diagnosis of patient's recent symptoms.? Patient and his spouse provide the majority of the history and relate that he has been experiencing symptoms of fatigue, night sweats, bowel changes, and has observed signs of painless lymphadenopathy.? Mr. Garcia reports all these changes to be rather sudden over the last 1 week.? He notes that he was in the shower when he first noticed that his neck lymph nodes were swollen. Mr. Garcia carries a diagnosis of history of CVA, but has minimal residual deficits?only true deficit acknowledged was slight speech deficit. PFSH Medical History? Hx of completed stroke Urinary hesitancy Home Medications alprazolam 0.5 mg tablet 0.5 mg PO TID PRN Anxiety 08/16/22 [History Last Taken 08/15/22] ferrous gluconate 240 mg (27 mg iron) tablet (Ferate) 65 mg PO DAILY supplement 08/16/22 [History Last Taken 08/16/22] Allergy/AdvReac Type Severity Reaction Status Date / Time diphenhydramine Allergy ? PT UNSURE Verified 08/16/22 14:11 [From Benadryl] ? ? OF REACTION ? ? finasteride AdvReac ? Other Verified 08/16/22 14:12 tamsulosin AdvReac ? Other Verified 08/16/22 14:12 Family History? Brother Cancer ?? ? colonMother Cancer ?? ? skinFather Cancer ?? ? skin Surgical History? History of transurethral resection of bladder tumor (TURBT) Social History?(Updated 08/16/22 @ 18:[address] Gely Blake, DO) household members:? spouse housing:? house Smoking Status:? Never smoker Smokeless tobacco user:? chewing tobacco alcohol intake:? never substance use type:? does not use Physical Exam Const alert, oriented x3 and no apparent distress General Appearance: cooperative and well kempt Neck Neck Narrative: Bilateral cervical lymphadenopathy that is nontender with palpation. Lymph Lymphatic Narrative: Bilateral cervical lymphadenopathy, deep left axillary lymphadenopathy, moderately deep left inguinal lymphadenopathy.? All of the above locations are nontender with palpation. Lab / Micro Data Result Diagrams: 08/17/22 06:00? 08/17/22 06:00? Labs: Laboratory Results - last 24 hr 08/16/22 15:45: Ammonia 43.0 H,?B-Natriuretic Peptide 114.6 H 08/16/22 15:45: Uric Acid 9.6 H, Iron 154,?TIBC 155 L,?Iron Saturation 99.4 H,? Ferritin 1352 H,?Lactate Dehydrogenase 408 H, Folate 9.40 08/16/22 15:55:?Urine RBC 0 SEEN, Urine WBC 0-5 SEEN, Ur Squamous Epith Cells 0 SEEN, Urine Bacteria 0 SEEN, Hyaline Casts 0-5 SEEN, Urine Mucus 0 SEEN 08/16/22 17:40: PT 15.2 H, INR 1.2, APTT 27.3 08/16/22 17:40:?Blood Type A POSITIVE,?Antibody Screen POSITIVE H 08/16/22 17:40:?Crossmatch See Detail 08/16/22 19:30: Retic Count 0.17 L,?Immature Retic Fraction 1.70 L, Retic Hgb Equivalent 32.0 08/16/22 20:34:?Vitamin B12 504 08/17/22 06:00: WBC 15.8 H,?RBC 2.40 L,?Hgb 6.9 L,?Hct 20.6 L, MCV 85.8, MCH 28.8, MCHC 33.5, RDW Std Deviation 43.1, RDW Coeff of Enoc 13.8, Plt Count 293, MPV 9.8, Immature Gran % (Auto) 0.600,?Neut % (Auto) 17.3 L,?Lymph % (Auto) 65.9 H,?[place] % (Auto) 15.2 H, Eos % (Auto) 0.2, Baso % (Auto) 0.8, Absolute Neuts (auto) 2.7,?Absolute Lymphs (auto) 10.40 H, Nucleated RBC % 0, Diff Path Review Reviewed, Atypical Lymphocytes SCANNED 08/17/22 06:00:?Sodium 140, Potassium 4.0, Chloride 106, Carbon Dioxide 29.0, Anion Gap 5,?BUN 44 H, Creatinine 1.13, Estim Creat Clear Calc 65.81, Est GFR (MDRD) Af Amer 82, Est GFR (MDRD) Non-Af 68,?BUN/Creatinine Ratio 38.9 H,? Glucose 125 H,?Calcium 11.3 H, Phosphorus 3.5, Magnesium 2.0, Total Bilirubin 0.90, AST 20, ALT 24, Alkaline Phosphatase 106,?Total Protein 6.1 L,?Albumin 2.4 L, Globulin 3.7,?Albumin/Globulin Ratio 0.6 L, TSH 2.96 Micro: Microbiology 08/16/22 16:30 ? Stool ? Stool Occult Blood (VELVET) - Final I have examined the patient and the H&P has been reviewed. There are no clinical changes since date of exam. Plan to proceed for excisional biopsy of right jugular lymphadenopathy with frozen section. Of note the left axillary adenopathy and left inguinal adenopathy have also been preoperatively marked as fallback. Consents have been addended to reflect these options.
[2022-08-20] MEDS: Bupiv/Epi 0.25% 30 ML Vial (15:15)
--- NOTE | 2022-08-20 15:22 | PCM.OPRPT ---
Report of Operation Date of Procedure: 08/20/22 Pre-Operative Diagnosis: Diffuse lymphadenopathy (including cervical, axillary, and inguinal) Post-Operative Diagnosis: Same Surgery/Procedure Performed:: Excisional biopsy of right cervical lymph node (external jugular) Description of Surgical Findings:: ? Approximately 3 cm firm right jugular lymph node Surgeon: Boubacar Serrano business development agent: Ramirez Mead Type of Anesthesia: MAC/Supplemental/Local Anesthesiologist: Anatoliy Gonzalez Specimen's removed: right jugular lymph node Drains: NA Estimated Blood Loss (mL): 10 Description of Procedure: After appropriate identification the preoperative holding area patient was brought to the operating room where he was positioned in a supine position. There he was administered a local MAC. Preoperative antibiotics were infused. His anterior neck was prepped and draped in usual sterile fashion. A formal timeout followed to confirm both patient and procedure. I then raised a wheal of local anesthetic and made a transverse incision 3 cm long along the mid aspect of the patient's lymphadenopathy. This was carried deeply through the dermal tissue with use of electrocautery to maintain hemostasis as we proceeded. I then visualized the fibers of the sternocleidomastoid muscle and palpated the lymph node deeply. An Allis clamp was applied to the midportion of this palpable abnormality and I began circumferential dissection of the muscle fiber away from this deeper structure using a combination of monopolar and bipolar energy. Bipolar energy was used for tissue that appeared to represent small lymphatic channels or was adjacent a sensory nerve running parallel that appeared to be part of ansa cervicalis. Ultimately I was able to visualize the surface of the lymph node and carefully dissected it free of the surrounding soft tissue. Particular care was used in freeing it posteriorly off the external jugular vein. As I came across the primary lymphatic channel, a 3-0 silk ligature was placed around the base to secure the structure and then it was sealed distally with use of bipolar energy. Ultimately the lymph node was completely extirpated and was passed off the field for frozen section. The resulting cavity was irrigated with sterile water and inspected for hemostasis; which was found to be intact?along with no evidence of lymphatic leak. The cavity was then closed in layers 3-0 Vicryl and 4-0 Monocryl, respectively. Dermabond was applied as a dressing and the patient's sedation was lightened and he was transferred to the PACU bed for his ongoing care. Complications None Admit VTE Documentation VTE Mechan Device Prophylaxis: SCD's Procedures Cardiovascular CF Procedures 33xxx-39xxx: [id number] Biopsy/removal lymph nodes
--- NOTE | 2022-08-20 15:44 | CASEMGMT ---
JUAN CM in to pt room, pt is off the floor at this time.
[2022-08-20 15:56] LABS: Bedside Glucose 191 mg/dL (74-106)
[2022-08-20] MEDS: Ensure Clear 120 ML Liquid PO (18:44)
[2022-08-21 01:23] VITALS: BP 120/70; PULSE 85; RESP 20; TEMP 36.6; O2SAT 95
[2022-08-21] MEDS: Acetaminophen 325 MG Tablet 650 MG PO ×2 (01:24→09:32)
[2022-08-21] MEDS: Lactated Ringers 1,000 ML 70 ML IV ×2 (01:25→14:33)
[2022-08-21 04:19] VITALS: PULSE 80; RESP 20; O2SAT 91
[2022-08-21 06:22] VITALS: BP 115/67; PULSE 84; RESP 20; TEMP 36.5; O2SAT 95
[2022-08-21 06:56] LABS: Absolute Lymphocyte Count 7.29 X10^3/uL (0.83-4.51); Absolute Neutrophil Count 2.3 X10^3/uL (2.0-7.7); Basophil# 0.02 X10^3/uL; Basophil% 0.2 % (0-1); Differential Indicated SCAN CRITERIA MET; Eosinophil# 0.02 X10^3/uL; Eosinophils% 0.2 % (0-5); Hematocrit 20.7 % (40-54); Hemoglobin 6.6 g/dL (13.0-16.5); Lymphocyte # 7.29 X10^3/ul (0.83-4.51); Lymphocyte % 71.9 % (19-41); Mean Corp Hgb Conc 31.9 g/dL (32-36); Mean Corpuscular Hgb 28.1 pg (27.0-32.0); Mean Corpuscular Volume 88.1 fL (80-94); Mean Platelet Vol. 9.5 fl (6.2-12.0); Monocyte# 0.46 X10^3/uL; Monocyte% 4.5 % (0-10); NRBC Flagged by Analyzer 0.2 % (0-5); Neutrophil # 2.32 X10^3/uL (2.7-7.7); Neutrophil % 22.9 % (47-70); POSITIVE DIFFERENTIAL YES; POSITIVE MORPHOLOGY YES; Platelet Count 311 K/mm3 (150-450); RBC Distribution Width CV 13.9 % (11.6-14.6); RBC Distribution Width SD 43.8 fl (35.1-43.9); Red Blood Count 2.35 M/mm3 (4.6-6.2); White Blood Count 10.1 K/mm3 (4.4-11.0)
[2022-08-21 07:13] LABS: Atypical Lymphocyte 1+ %; Differential Comment SCANNED; Hypochromasia 2+
--- NOTE | 2022-08-21 07:25 | PCM.PN.HOSP ---
Reason for Visit Reason for Visit: Diagnoses Anemia, unspecified (08/16/22) Elevated white blood cell count, unspecified (08/16/22) Hypercalcemia (08/16/22) Dehydration (08/16/22) Shortness of breath (08/16/22) Weakness (08/16/22) Generalized enlarged lymph nodes (08/16/22) Adult failure to thrive (08/16/22) Subjective Subjective Patient underwent excisional biopsy of a right cervical lymph node (external jugular) on 08/20/[address] Serrano Objective Data Objective Data Vital Signs: Vital Signs Temp Pulse Resp BP Pulse Ox O2 Del Method O2 Flow Rate 97.7 F L 84 20 H 115/67 95 Room Air 2 08/21/22 06:22 08/21/22 06:22 08/21/22 06:22 08/21/22 06:22 08/21/22 06:22 08/21/22 06:22 08/20/22 15:52 Oxygen Flow Rate (L/min) 2 Oxygen Delivery Method Room Air Weight: 85.1 kg Body Mass Index (BMI) 25.4 Intake & Output: Intake and Output for Last 24 Hours 08/19/22 08/20/22 08/21/22 23:59 23:59 23:59 Intake Total 1186.34 / 1186.34 Balance 1186.34 / 1186.34 Lab / Micro Data Result Diagrams: 08/21/22 06:15 08/21/22 06:15 Labs: Laboratory Results - last 24 hr 08/20/22 15:34: POC Glucose 191 H 08/21/22 06:15: WBC 10.1, RBC 2.35 L, Hgb 6.6 L, Hct 20.7 L, MCV 88.1, MCH 28.1, MCHC 31.9 L D, RDW Std Deviation 43.8, RDW Coeff of Enoc 13.9, Plt Count 311, MPV 9.5, Immature Gran % (Auto) 0.300, Neut % (Auto) 22.9 L, Lymph % (Auto) 71.9 H, [place] % (Auto) 4.5, Eos % (Auto) 0.2, Baso % (Auto) 0.2, Absolute Neuts (auto) 2.3, Absolute Lymphs (auto) 7.29 H, Nucleated RBC % 0.2, Differential Comment SCANNED, Atypical Lymphocytes 1+, Hypochromasia 2+ Micro: Microbiology 08/16/22 16:30 Stool Stool Occult Blood (VELVET) - Final Radiography Diagnostic Testing: Radiology Impression Echocardiogram 08/19/22 15:37 Interpretation Summary Mildly dilated left ventricle. The estimated ejection fraction is 25 %. Stage 1 diastolic dysfunction. There is severe global hypokinesis of the left ventricle. The left atrium is moderately enlarged. Mildly dilated aortic root. Small pericardial effusion. The global longitudinal strain is moderately abnormal. The global longitudinal strain = -10.3% (abnormal). The global longitudinal strain = -10.3% (abnormal). The global longitudinal strain is moderately abnormal. Ordering Physician: Ivan Tello Performed By: Lenin Nieves RCS Physical Exam Narrative GENERAL: cooperative but frail looking HEENT: Atraumatic; normocephalic EYES; Anicteric, Normal Conjunctiva NECK; supple, normal thyroid, RESPIRATORY: Diminished to auscultation CARDIOVASCULAR: Regular S1 S2, GI: soft, normoactive bowel sounds, : No Renal angle tenderness; EXTREMITIES: No edema, no clubbing, MUSCULOSKELETAL: no muscle wasting NEURO: Awake; no lateralizing signs. SKIN: No Rash PSYCH; Flat affect Assessment & Plan Assessment/Plan (1) Failure to thrive syndrome, adult: (2) Diffuse lymphadenopathy: (3) Anemia: PLAN: Plan Patient is a 72-year-old gentleman who presented with progressive generalized weakness. CT of the abdomen and pelvis performed on 08/11/2022 demonstrated generalized adenopathy hepatosplenomegaly and ascites. Admitted to monitored bed for subsequent evaluation 1. Generalized lymphadenopathy ? With concern for possible lymphoma patient has been admitted to regular nursing floor consult placed to general surgery plan is for patient to undergo biopsy. Consult placed to heme-onc notes and recommendations reviewed. ?08/21/2022 Patient underwent excisional biopsy of a right cervical lymph node (external jugular) on 08/20/[address] Serrano 2. Anemia ? Probably related to patient underlying suspected malignancy. Patient underwent EGD which did not find any evidence of upper GI bleed. Patient did receive transfusion with 2 unit PRBC. Subsequent monitoring with repeat H&H ordered ? 08/21/2022 patient hemoglobin down to 6.6 an order was given for patient to be transfused with 1 unit PRBC 3. Severe protein calorie malnutrition ? Evidenced by muscle wasting loss of energy and low appetite. This is possibly related to patient underlying suspected malignancy consult placed to dietitian 4. BPH ? With history of TURP. Patient was not placed on tamsulosin or finasteride due to allergies 5. Anxiety disorder ? Patient is on alprazolam as needed 6. DVT prophylaxis ? Bilateral SCDs Time spent in the patient's overall evaluation,decision-making process, review of diagnostic data, adjustment of management, discussion with other providers, nursing nursing and ancillary staff involved in patient's care documentation, 40 Minutes Charges/Coding Visit Charges Inpatient E&M: 07792 Subs Hosp L2
[2022-08-21 07:28] LABS: Anion Gap 7 (5-15); BUN 36 mg/dL (7-18); BUN/Creat Ratio 28.3 RATIO (10-20); Calcium,Total 10.1 mg/dL (8.5-10.1); Chloride 105 mmol/L (98-107); Creatinine, Serum 1.27 mg/dL (0.70-1.30); EST Glomerular Filtration Rate 59 mL/min (>60); Est Glom Filt Rate - Afr Amer 72 mL/min (>60); Estimated Creatinine Clearance 58.56 ml/min; Glucose 117 mg/dL (74-106); Magnesium 2.1 mg/dL (1.6-2.6); Potassium 4.2 mmol/L (3.5-5.1); Sodium Level 139 mmol/L (136-145)
[2022-08-21 09:07] VITALS: BP 126/58; PULSE 96; RESP 20; TEMP 36.9; O2SAT 96
[2022-08-21] MEDS: Allopurinol 300 MG Tablet PO (09:24)
[2022-08-21] MEDS: Ensure Clear 120 ML Liquid PO ×3 (09:32→20:42)
--- NOTE | 2022-08-21 10:39 | PN.SURG_ITS ---
Subjective Subjective Patient seen and examined during AM rounds. He is found sitting on the edge of the bed conversing with nursing. He denies any discomfort from his neck and reports that his family stated it was hard to see where he had surgery, but he is not examine the area for himself. Objective Data Objective Data Vital Signs: Vital Signs Temp Pulse Resp BP Pulse Ox O2 Del Method O2 Flow Rate 98.4 F 96 20 H 126/58 H 96 Room Air 2 08/21/22 09:07 08/21/22 09:07 08/21/22 09:07 08/21/22 09:07 08/21/22 09:07 08/21/22 09:10 08/20/22 15:52 Oxygen Flow Rate (L/min) 2 Oxygen Delivery Method Room Air Weight: 187 lb 9.814 oz Body Mass Index (BMI) 25.4 Intake & Output: Intake and Output for Last 24 Hours 08/19/22 08/20/22 08/21/22 23:59 23:59 23:59 Intake Total 1186.34 / 1186.34 Balance 1186.34 / 1186.34 Lab / Micro Data Result Diagrams: 08/21/22 06:15 08/21/22 06:15 Labs: Laboratory Results - last 24 hr 08/20/22 15:34: POC Glucose 191 H 08/21/22 06:15: WBC 10.1, RBC 2.35 L, Hgb 6.6 L, Hct 20.7 L, MCV 88.1, MCH 28.1, MCHC 31.9 L D, RDW Std Deviation 43.8, RDW Coeff of Enoc 13.9, Plt Count 311, MPV 9.5, Immature Gran % (Auto) 0.300, Neut % (Auto) 22.9 L, Lymph % (Auto) 71.9 H, [place] % (Auto) 4.5, Eos % (Auto) 0.2, Baso % (Auto) 0.2, Absolute Neuts (auto) 2.3, Absolute Lymphs (auto) 7.29 H, Nucleated RBC % 0.2, Differential Comment SCANNED, Atypical Lymphocytes 1+, Hypochromasia 2+ 08/21/22 06:15: Sodium 139, Potassium 4.2, Chloride 105, Carbon Dioxide 27.0, Anion Gap 7, BUN 36 H, Creatinine 1.27, Estim Creat Clear Calc 58.56, Est GFR (MDRD) Af Amer 72, Est GFR (MDRD) Non-Af 59 L, BUN/Creatinine Ratio 28.3 H, Glucose 117 H, Calcium 10.1, Magnesium 2.1 08/21/22 10:25: Crossmatch See Detail Micro: Microbiology 08/16/22 16:30 Stool Stool Occult Blood (VELVET) - Final Radiography Diagnostic Testing: Radiology Impression Echocardiogram 08/19/22 15:37 Interpretation Summary Mildly dilated left ventricle. The estimated ejection fraction is 25 %. Stage 1 diastolic dysfunction. There is severe global hypokinesis of the left ventricle. The left atrium is moderately enlarged. Mildly dilated aortic root. Small pericardial effusion. The global longitudinal strain is moderately abnormal. The global longitudinal strain = -10.3% (abnormal). The global longitudinal strain = -10.3% (abnormal). The global longitudinal st rain is moderately abnormal. Ordering Physician: Ivan Tello Performed By: Lenin Nieves RCS Physical Exam Const oriented x3 and no apparent distress Neck Neck Narrative: Right neck with appropriate appearing transverse cervical incision with Dermabond intact. There is no erythema of the area, no swelling, and no tenderness with palpation. Assessment & Plan Assessment/Plan (1) S/P lymph node biopsy: PLAN: Patient is postoperative day 1 from right cervical lymph node biopsy. He is doing very well in his recovery and denies any discomfort. His surgical site appears appropriate on exam and remains sealed beneath the layer of Dermabond. He was encouraged to shower and go about his daily routine. I have educated him that with routine showering this protective barrier should dissolve between 7 and 10 days postoperatively. No further wound care should be required. Charges/Coding Visit Charges Inpatient E&M: 10209 Subs Hosp L2
--- NOTE | 2022-08-21 12:01 | CASEMGMT ---
RN CM in to pt room, pt and dtr present. Pt lying in bed in no distress. Discussed dc planning. Pt needs a FWW for home. Discussed therapy, pt is sure he wants to go home. He is not sure he will need any HHC and states it is too early to tell. They are aware that this RN CM will provide a list of HHC providers including quality and resource use data and consistent with the patient?s preferred geographic region, medical needs, and insurance network were provided from the [employer]. They can review and if at dc this is needed, the RN CM will set up. All are in agreement to this. Provided pt with a verbal local list of DME providers for the walker, pt chose [employer].
[2022-08-21 14:20] VITALS: BP 123/69; PULSE 87; RESP 18; TEMP 36.4; O2SAT 99
[2022-08-21 20:37] VITALS: BP 130/67; PULSE 97; RESP 18; TEMP 36.9; O2SAT 98
[2022-08-22] VITALS (16 sets, daily range): BP systolic 125–151; BP diastolic 71–88; PULSE 84–95; RESP 16–18; TEMP 36.4–37.1; O2SAT 94–98
[2022-08-22] MEDS: Lactated Ringers 1,000 ML 70 ML IV (03:41)
[2022-08-22] MEDS: Allopurinol 300 MG Tablet PO (08:00)
--- NOTE | 2022-08-22 08:00 | PN.HOSP_ITS ---
Reason for Visit Reason for Visit: Diagnoses Anemia, unspecified (08/16/22) Elevated white blood cell count, unspecified (08/16/22) Hypercalcemia (08/16/22) Dehydration (08/16/22) Shortness of breath (08/16/22) Weakness (08/16/22) Generalized enlarged lymph nodes (08/16/22) Adult failure to thrive (08/16/22) Other specified postprocedural states (08/16/22) Subjective Subjective Patient did receive transfusion with 1 unit PRBC posttransfusion H&H pending. Case was discussed with Dr Nowak with oncology patient to be administered with 40 mg of Decadron with plans for patient to be discharged home to follow-up with oncology for results of his biopsy Objective Data Objective Data Vital Signs: Vital Signs Temp Pulse Resp BP Pulse Ox O2 Del Method O2 Flow Rate 98 F 94 18 144/73 H 94 Room Air 2 08/22/22 07:33 08/22/22 07:33 08/22/22 07:33 08/22/22 07:33 08/22/22 07:43 08/22/22 07:56 08/20/22 15:52 Oxygen Flow Rate (L/min) 2 Oxygen Delivery Method Room Air Weight: 85.1 kg Body Mass Index (BMI) 25.4 Intake & Output: Intake and Output for Last 24 Hours 08/20/22 08/21/22 08/22/22 23:59 23:59 23:59 Intake Total 1419.33 / 1419.33 1444.16 / 1444.16 Balance 1419.33 / 1419.33 1444.16 / 1444.16 Lab / Micro Data Result Diagrams: 08/21/22 06:15 08/21/22 06:15 Labs: Laboratory Results - last 24 hr 08/16/22 17:40: Crossmatch See Detail 08/21/22 10:25: Blood Type A POSITIVE, Antibody Screen POSITIVE, Antibody Identification WARM AUTOANTIBODY, Crossmatch See Detail 08/21/22 10:25: Direct Antiglob Test NEG w/COMPLEMENT 08/21/22 10:25: Antigen Identification E ANTIGEN - NEGATIVE Micro: Microbiology 08/16/22 16:30 Stool Stool Occult Blood (VELVET) - Final Physical Exam Narrative GENERAL: cooperative but frail looking HEENT: Atraumatic; normocephalic EYES; Anicteric, Normal Conjunctiva NECK; supple, normal thyroid, RESPIRATORY: Diminished to auscultation CARDIOVASCULAR: Regular S1 S2, GI: soft, normoactive bowel sounds, : No Renal angle tenderness; EXTREMITIES: No edema, no clubbing, MUSCULOSKELETAL: no muscle wasting NEURO: Awake; no lateralizing signs. SKIN: No Rash PSYCH; Flat affect Assessment & Plan Assessment/Plan (1) Failure to thrive syndrome, adult: (2) Diffuse lymphadenopathy: (3) Anemia: PLAN: Plan Patient is a 72-year-old gentleman who presented with progressive generalized weakness. CT of the abdomen and pelvis performed on 08/11/2022 demonstrated generalized adenopathy hepatosplenomegaly and ascites. Admitted to monitored bed for subsequent evaluation 1. Generalized lymphadenopathy ? With concern for possible lymphoma patient has been admitted to regular nursing floor consult placed to general surgery plan is for patient to undergo biopsy. Consult placed to heme-onc notes and recommendations reviewed. ?08/21/2022 Patient underwent excisional biopsy of a right cervical lymph node (external jugular) on 08/20/[address] Serrano -02/03/2023 Case was discussed with Dr Nowak with oncology patient to be adminis tered with 40 mg of Decadron with plans for patient to be discharged home to follow-up with oncology for results of his biopsy 2. Anemia ? Probably related to patient underlying suspected malignancy. Patient underwent EGD which did not find any evidence of upper GI bleed. Patient did receive transfusion with 2 unit PRBC. Subsequent monitoring with repeat H&H ordered ? 08/21/2022 patient hemoglobin down to 6.6 an order was given for patient to be transfused with 1 unit PRBC -08/22/2022 Patient did receive transfusion with 1 unit PRBC posttransfusion H&H pending. 3. Severe protein calorie malnutrition ? Evidenced by muscle wasting loss of energy and low appetite. This is possibly related to patient underlying suspected malignancy consult placed to dietitian 4. BPH ? With history of TURP. Patient was not placed on tamsulosin or finasteride due to allergies 5. Anxiety disorder ? Patient is on alprazolam as needed 6. DVT prophylaxis ? Bilateral SCDs Time spent in the patient's overall evaluation,decision-making process, review of diagnostic data, adjustment of management, discussion with other providers, nursing nursing and ancillary staff involved in patient's care documentation, 40 Minutes Charges/Coding Visit Charges Inpatient E&M: 39656 Subs Hosp L2
[2022-08-22] MEDS: Ensure Plus High Protein 120 ML LIQUID PO ×2 (08:01→12:09)
[2022-08-22 08:39] LABS: Absolute Lymphocyte Count 6.25 X10^3/uL (0.83-4.51); Absolute Neutrophil Count 1.6 X10^3/uL (2.0-7.7); Basophil# 0.01 X10^3/uL; Basophil% 0.1 % (0-1); Eosinophil# 0.01 X10^3/uL; Eosinophils% 0.1 % (0-5); Hematocrit 20.4 % (40-54); Hemoglobin 6.8 g/dL (13.0-16.5); Lymphocyte # 6.25 X10^3/ul (0.83-4.51); Lymphocyte % 74.9 % (19-41); Mean Corp Hgb Conc 33.3 g/dL (32-36); Mean Corpuscular Hgb 28.5 pg (27.0-32.0); Mean Corpuscular Volume 85.4 fL (80-94); Mean Platelet Vol. 8.9 fl (6.2-12.0); Monocyte# 0.42 X10^3/uL; NRBC Flagged by Analyzer 0 % (0-5); Neutrophil # 1.63 X10^3/uL (2.7-7.7); Neutrophil % 19.5 % (47-70); POSITIVE DIFFERENTIAL YES; POSITIVE MORPHOLOGY YES; Platelet Count 315 K/mm3 (150-450); RBC Distribution Width CV 13.5 % (11.6-14.6); RBC Distribution Width SD 42.4 fl (35.1-43.9); Red Blood Count 2.39 M/mm3 (4.6-6.2); White Blood Count 8.4 K/mm3 (4.4-11.0)
[2022-08-22 08:50] LABS: Differential Indicated SCAN CRITERIA MET
[2022-08-22 09:00] LABS: Anion Gap 8 (5-15); BUN 30 mg/dL (7-18); BUN/Creat Ratio 25.6 RATIO (10-20); Calcium,Total 9.8 mg/dL (8.5-10.1); Chloride 105 mmol/L (98-107); Creatinine, Serum 1.17 mg/dL (0.70-1.30); EST Glomerular Filtration Rate 65 mL/min (>60); Est Glom Filt Rate - Afr Amer 79 mL/min (>60); Estimated Creatinine Clearance 63.56 ml/min; Glucose 122 mg/dL (74-106); Potassium 3.9 mmol/L (3.5-5.1); Sodium Level 140 mmol/L (136-145)
[2022-08-22] MEDS: dexAMETHasone 4 MG Tablet 40 MG PO (09:26)
[2022-08-22 10:19] LABS: Anisocytosis 1+; Differential Comment SCANNED; Hypochromasia 1+; Microcytosis 2+
[2022-08-22] MEDS: ALPRAZolam 0.5 MG Tablet PO (21:06)
[2022-08-23] MEDS: Lactated Ringers 1,000 ML 70 ML IV (00:03)
[2022-08-23 02:36] VITALS: BP 116/72; PULSE 83; RESP 16; TEMP 36.4; O2SAT 98
[2022-08-23 07:06] LABS: Absolute Lymphocyte Count 4.79 X10^3/uL (0.83-4.51); Absolute Neutrophil Count 2.5 X10^3/uL (2.0-7.7); Basophil# 0.02 X10^3/uL; Basophil% 0.2 % (0-1); Eosinophil# 0.11 X10^3/uL; Eosinophils% 1.4 % (0-5); Hematocrit 25.6 % (40-54); Hemoglobin 8.7 g/dL (13.0-16.5); Lymphocyte # 4.79 X10^3/ul (0.83-4.51); Lymphocyte % 58.8 % (19-41); Mean Corpuscular Hgb 28.6 pg (27.0-32.0); Mean Corpuscular Volume 84.2 fL (80-94); Mean Platelet Vol. 9.1 fl (6.2-12.0); Monocyte# 0.66 X10^3/uL; Monocyte% 8.1 % (0-10); NRBC Flagged by Analyzer 0 % (0-5); Neutrophil # 2.53 X10^3/uL (2.7-7.7); Neutrophil % 31.1 % (47-70); POSITIVE MORPHOLOGY YES; Platelet Count 370 K/mm3 (150-450); RBC Distribution Width SD 42.5 fl (35.1-43.9); Red Blood Count 3.04 M/mm3 (4.6-6.2); White Blood Count 8.1 K/mm3 (4.4-11.0)
[2022-08-23 07:07] LABS: Differential Indicated SCAN CRITERIA MET
--- NOTE | 2022-08-23 07:08 | PCM.PN.HOSP ---
Reason for Visit Reason for Visit: Diagnoses Anemia, unspecified (08/16/22) Elevated white blood cell count, unspecified (08/16/22) Hypercalcemia (08/16/22) Dehydration (08/16/22) Shortness of breath (08/16/22) Weakness (08/16/22) Generalized enlarged lymph nodes (08/16/22) Adult failure to thrive (08/16/22) Other specified postprocedural states (08/16/22) Subjective Subjective Hemoglobin up to 8.7 following recent blood transfusion. Plan for patient to be assessed for possible discharge Objective Data Objective Data Vital Signs: Vital Signs Temp Pulse Resp BP Pulse Ox O2 Del Method O2 Flow Rate 97.6 F L 83 16 116/72 98 Room Air 2 08/23/22 02:36 08/23/22 02:36 08/23/22 02:36 08/23/22 02:36 08/23/22 02:36 08/23/22 02:36 08/20/22 15:52 Oxygen Flow Rate (L/min) 2 Oxygen Delivery Method Room Air Weight: 85.1 kg Body Mass Index (BMI) 25.4 Intake & Output: Intake and Output for Last 24 Hours 08/21/22 08/22/22 08/23/22 23:59 23:59 23:59 Intake Total 1419.33 / 1419.33 2666.49 / 2666.49 326.67 / 326.67 Output Total 400 / 400 Balance 1419.33 / 1419.33 2666.49 / 2666.49 -73.33 / -73.33 Lab / Micro Data Result Diagrams: 08/23/22 06:25 08/23/22 06:25 Labs: Laboratory Results - last 24 hr 08/21/22 10:25: Crossmatch See Detail 08/21/22 10:25: Antibody Identification NEGATIVE ANTIBODY PANEL 08/21/22 10:25: Crossmatch See Detail 08/22/22 08:30: WBC 8.4, RBC 2.39 L, Hgb 6.8 L, Hct 20.4 L, MCV 85.4, MCH 28.5, MCHC 33.3, RDW Std Deviation 42.4, RDW Coeff of Enoc 13.5, Plt Count 315, MPV 8.9, Immature Gran % (Auto) 0.400, Neut % (Auto) 19.5 L, Lymph % (Auto) 74.9 H, Rooks % (Auto) 5.0, Eos % (Auto) 0.1, Baso % (Auto) 0.1, Absolute Neuts (auto) 1.6 L, Absolute Lymphs (auto) 6.25 H, Nucleated RBC % 0, Differential Comment SCANNED, Hypochromasia 1+, Anisocytosis 1+, Microcytosis 2+ 08/22/22 08:30: Sodium 140, Potassium 3.9, Chloride 105, Carbon Dioxide 27.0, Anion Gap 8, BUN 30 H, Creatinine 1.17, Estim Creat Clear Calc 63.56, Est GFR (MDRD) Af Amer 79, Est GFR (MDRD) Non-Af 65, BUN/Creatinine Ratio 25.6 H, Glucose 122 H, Calcium 9.8 08/23/22 06:25: WBC 8.1, RBC 3.04 L, Hgb 8.7 L, Hct 25.6 L, MCV 84.2, MCH 28.6, MCHC 34.0, RDW Std Deviation 42.5, RDW Coeff of Enoc 14.0, Plt Count 370, MPV 9.1, Immature Gran % (Auto) 0.400, Neut % (Auto) 31.1 L, Lymph % (Auto) 58.8 H, Rooks % (Auto) 8.1, Eos % (Auto) 1.4, Baso % (Auto) 0.2, Absolute Neuts (auto) 2.5, Absolute Lymphs (auto) 4.79 H, Nucleated RBC % 0 Micro: Microbiology 08/16/22 16:30 Stool Stool Occult Blood (VELVET) - Final Physical Exam Narrative GENERAL: cooperative but frail looking HEENT: Atraumatic; normocephalic EYES; Anicteric, Normal Conjunctiva NECK; supple, normal thyroid, RESPIRATORY: Diminished to auscultation CARDIOVASCULAR: Regular S1 S2, GI: soft, normoactive bowel sounds, : No Renal angle tenderness; EXTREMITIES: No edema, no clubbing, MUSCULOSKELETAL: no muscle wasting NEURO: Awake; no lateralizing signs. SKIN: No Rash PSYCH; Flat affect Assessment & Plan Assessment/Plan (1) Failure to thrive syndrome, adult: (2) Diffuse lymphadenopathy: (3) Anemia: PLAN: Plan Patient is a 72-year-old gentleman who presented with progressive generalized weakness. CT of the abdomen and pelvis performed on 08/11/2022 demonstrated generalized adenopathy hepatosplenomegaly and ascites. Admitted to monitored bed for subsequent evaluation 1. Generalized lymphadenopathy ? With concern for possible lymphoma patient has been admitted to regular nursing floor consult placed to general surgery plan is for patient to undergo biopsy. Consult placed to heme-onc notes and recommendations reviewed. ?08/21/2022 Patient underwent excisional biopsy of a right cervical lymph node (external jugular) on 08/20/[address] Serrano ?08/22/2022 Case was discussed with Dr Nowak with oncology patient to be administered with 40 mg of Decadron with plans for patient to be discharged home to follow-up with oncology for results of his biopsy ? 08/23/2022 B: Biopsy still pending. 2. Anemia ? Probably related to patient underlying suspected malignancy. Patient underwent EGD which did not find any evidence of upper GI bleed. Patient did receive transfusion with 2 unit PRBC. Subsequent monitoring with repeat H&H ordered ? 08/21/2022 patient hemoglobin down to 6.6 an order was given for patient to be transfused with 1 unit PRBC -08/22/2022 Patient did receive transfusion with 1 unit PRBC posttransfusion H&H pending. 08/23/2022 hemoglobin up to 8.7 3. Severe protein calorie malnutrition ? Evidenced by muscle wasting loss of energy and low appetite. This is possibly related to patient underlying suspected malignancy consult placed to dietitian 4. BPH ? With history of TURP. Patient was not placed on tamsulosin or finasteride due to allergies 5. Anxiety disorder ? Patient is on alprazolam as needed 6. DVT prophylaxis ? Bilateral SCDs Time spent in the patient's overall evaluation,decision-making process, review of diagnostic data, adjustment of management, discussion with other providers, nursing nursing and ancillary staff involved in patient's care documentation, 40 Minutes Charges/Coding Visit Charges Inpatient E&M: 76790 Subs Hosp L2
[2022-08-23 07:19] LABS: Anion Gap 8 (5-15); BUN 32 mg/dL (7-18); BUN/Creat Ratio 28.6 RATIO (10-20); Calcium,Total 9.7 mg/dL (8.5-10.1); Chloride 105 mmol/L (98-107); Creatinine, Serum 1.12 mg/dL (0.70-1.30); EST Glomerular Filtration Rate 69 mL/min (>60); Est Glom Filt Rate - Afr Amer 83 mL/min (>60); Glucose 148 mg/dL (74-106); Potassium 4.1 mmol/L (3.5-5.1); Sodium Level 138 mmol/L (136-145)
[2022-08-23 07:47] LABS: Differential Comment SCANNED
[2022-08-23] MEDS: Allopurinol 300 MG Tablet PO (07:49)
--- NOTE | 2022-08-23 08:22 | DS.PCM_ITS ---
Providers Date of Admission: 08/16/22 Date of Discharge: 08/23/22 Primary Care Physician: EDU Cotton Consultations 08/16/22 19:54 Consult: Gastroenterology Routine Consulting Provider: Roseanne Gastroenterjoe Reason for Consult: Anemia EMERGENT Consult: No Notified: Yes Date Notified: 08/16/22 Time Notified: 17:50 Method of Notification: ED Physician Initiated Consult: General Surgery Routine Consulting Provider: Boubacar Serrano Reason for Consult: L axillary LN bx EMERGENT Consult: No Notified: Yes Date Notified: 08/16/22 Time Notified: 17:50 Method of Notification: ED Physician Initiated Reason For Visit: GENERALIZED WEAKNESS/LAD Diagnosis Discharge Diagnosis (1) Failure to thrive syndrome, adult: Status: Acute Code(s): R62.7 - Adult failure to thrive (2) Diffuse lymphadenopathy: Status: Acute Code(s): R59.1 - Generalized enlarged lymph nodes (3) Anemia: Status: Acute Code(s): D64.9 - Anemia, unspecified Plan Patient is a 72-year-old gentleman who presented with progressive generalized weakness. CT of the abdomen and pelvis performed on 08/11/2022 demonstrated generalized adenopathy hepatosplenomegaly and ascites. Admitted to monitored bed for subsequent evaluation 1. Generalized lymphadenopathy ? With concern for possible lymphoma patient has been admitted to regular nursing floor consult placed to general surgery plan is for patient to undergo biopsy. Consult placed to heme-onc notes and recommendations reviewed. ?08/21/2022 Patient underwent excisional biopsy of a right cervical lymph node (external jugular) on 08/20/[address] Serrano ?08/22/2022 Case was discussed with Dr Nowak with oncology patient to be administered with 40 mg of Decadron with plans for patient to be discharged home to follow-up with oncology for results of his biopsy ? 08/23/2022 B: Biopsy still pending. 2. Anemia ? Probably related to patient underlying suspected malignancy. Patient underwent EGD which did not find any evidence of upper GI bleed. Patient did receive transfusion with 2 unit PRBC. Subsequent monitoring with repeat H&H ordered ? 08/21/2022 patient hemoglobin down to 6.6 an order was given for patient to be transfused with 1 unit PRBC -08/22/2022 Patient did receive transfusion with 1 unit PRBC posttransfusion H&H pending. 08/23/2022 hemoglobin up to 8.7 3. Severe protein calorie malnutrition ? Evidenced by muscle wasting loss of energy and low appetite. This is possibly related to patient underlying suspected malignancy consult placed to dietitian 4. BPH ? With history of TURP. Patient was not placed on tamsulosin or finasteride due to allergies 5. Anxiety disorder ? Patient is on alprazolam as needed 6. DVT prophylaxis ? Bilateral SCDs Time spent in the patient's overall evaluation,decision-making process, review of diagnostic data, adjustment of management, discussion with other providers, nursing nursing and ancillary staff involved in patient's care documentation, 40 Minutes Medications at Discharge Home Medications alprazolam 0.5 mg tablet 0.5 mg PO TID PRN Anxiety 08/16/22 ferrous gluconate 240 mg (27 mg iron) tablet (Ferate) 65 mg PO DAILY supplement 08/16/22 allopurinol 300 mg tablet 300 mg PO DAILYCM #30 tabs 08/23/22 Hospital Course Summary of Care Provided Minutes Spent on Discharge: 40 Physical Exam Narrative GENERAL: cooperative but frail looking HEENT: Atraumatic; normocephalic EYES; Anicteric, Normal Conjunctiva NECK; supple, normal thyroid, RESPIRATORY: Diminished to auscultation CARDIOVASCULAR: Regular S1 S2, GI: soft, normoactive bowel sounds, : No Renal angle tenderness; EXTREMITIES: No edema, no clubbing, MUSCULOSKELETAL: no muscle wasting NEURO: Awake; no lateralizing signs. SKIN: No Rash PSYCH; Flat affect Weight / BMI Weight Weight: 85.1 kg Body Mass Index (BMI) 25.4 ABG / Lab / Microbiology Data Result Diagrams: 08/23/22 06:25 08/23/22 06:25 Laboratory: Laboratory Results - last 24 hr 08/21/22 10:25: Antibody Identification NEGATIVE ANTIBODY PANEL 08/21/22 10:25: Crossmatch See Detail 08/22/22 08:30: WBC 8.4, RBC 2.39 L, Hgb 6.8 L, Hct 20.4 L, MCV 85.4, MCH 28.5, MCHC 33.3, RDW Std Deviation 42.4, RDW Coeff of Enoc 13.5, Plt Count 315, MPV 8.9, Immature Gran % (Auto) 0.400, Neut % (Auto) 19.5 L, Lymph % (Auto) 74.9 H, Tate % (Auto) 5.0, Eos % (Auto) 0.1, Baso % (Auto) 0.1, Absolute Neuts (auto) 1.6 L, Absolute Lymphs (auto) 6.25 H, Nucleated RBC % 0, Differential Comment SCANNED, Hypochromasia 1+, Anisocytosis 1+, Microcytosis 2+ 08/22/22 08:30: Sodium 140, Potassium 3.9, Chloride 105, Carbon Dioxide 27.0, Anion Gap 8, BUN 30 H, Creatinine 1.17, Estim Creat Clear Calc 63.56, Est GFR (MDRD) Af Amer 79, Est GFR (MDRD) Non-Af 65, BUN/Creatinine Ratio 25.6 H, Glucose 122 H, Calcium 9.8 08/23/22 06:25: WBC 8.1, RBC 3.04 L, Hgb 8.7 L, Hct 25.6 L, MCV 84.2, MCH 28.6, MCHC 34.0, RDW Std Deviation 42.5, RDW Coeff of Enoc 14.0, Plt Count 370, MPV 9.1, Immature Gran % (Auto) 0.400, Neut % (Auto) 31.1 L, Lymph % (Auto) 58.8 H, Tate % (Auto) 8.1, Eos % (Auto) 1.4, Baso % (Auto) 0.2, Absolute Neuts (auto) 2.5, Absolute Lymphs (auto) 4.79 H, Nucleated RBC % 0, Differential Comment SCANNED 08/23/22 06:25: Sodium 138, Potassium 4.1, Chloride 105, Carbon Dioxide 25.0, Anion Gap 8, BUN 32 H, Creatinine 1.12, Estim Creat Clear Calc 66.40, Est GFR (MDRD) Af Amer 83, Est GFR (MDRD) Non-Af 69, BUN/Creatinine Ratio 28.6 H, Glucose 148 H, Calcium 9.7 Microbiology: Microbiology 08/16/22 16:30 Stool Stool Occult Blood (VELVET) - Final D/C Instructions Discharge Diet: No restrictions Discharge Activity: Return to Normal Activity Call your doctor if you observe: Fever of 101 or Higher, Shortness of breath, Fa inting spells and Chest pain Meaningful Use Info Meaningful Use Diagnoses (Choose all that apply): None applicable Discharge Plan Admission Admit Date/Time: 08/16/22 17:43 Attending Provider: Carlos Moreno Primary Care Provider: Darius Morales Consulting Providers: Boubacar Serrano ; Gely Blake ; Ivan Telol Discharge Orders/Prescriptions Prescriptions: New allopurinol 300 mg Tablet 300 mg PO DAILYCM Qty: 30 0RF Continued alprazolam 0.5 mg tablet 0.5 mg PO TID PRN (Reason: Anxiety) ferrous gluconate [Ferate] 240 mg (27 mg iron) tablet 65 mg PO DAILY Referrals / Follow Up: Isac Nowak MD [Med Staff - Active Staff] - Within 1 Week Darius Morales PA [Primary Care Provider] - In 1 Week Disposition Disposition (needs filled in before D/C Order can be placed): Home, Self Care Charges/Coding Visit Charges Inpatient E&M: 77559 Disch Hosp >30min
[2022-08-23 08:40] VITALS: BP 124/69; PULSE 81; RESP 18; TEMP 36.4; O2SAT 97
--- NOTE | 2022-08-23 09:51 | CASEMGMT ---
JUAN ARANGO in to pt room, pt lying in bed in no distress. Pt states he feels really good and well enough that he should not be in the hospital. Discussed homegoing plans, pt states he does not feel that he needs any homecare in the home. He does want the FWW. He is aware the referral for this will be sent and it will be delivered to his room today. Pt is aware that should he get home and need services he may call his PCP. Also if his family arrives today and has a questions regarding homegoing to ask for the JUAN ARANGO. Referral sent to [facility] at this time via [facility].
[2022-08-23 13:48] VITALS: BP 122/66; PULSE 90; RESP 18; TEMP 36.8; O2SAT 98
== END 2022-08-23 13:58 | disposition home or self-care (01) | DRG 823 ==
LOC: ED 17:53 → MS3 18:40
PROVIDERS: Family Medicine; Internal Medicine Gastroenterology; Surgery; Admitting Provider Internal Medicine; Emergency Provider Student in an Organized Health Care Education/Training Program; PCP Physician Assistant; Visit Provider Internal Medicine
PROC: 0DJ08ZZ Inspection of Upper Intestinal Tract, Via Natural or Artificial Opening Endoscopic (ICD-10-PCS; CPT 43235; principal; 2022-08-17 15:55)
PROC: 07B10ZX Excision of Right Neck Lymphatic, Open Approach, Diagnostic (ICD-10-PCS; CPT 38500; principal; 2022-08-20 13:15)
DX: C85.90 Non-Hodgkin lymphoma, unspecified, unspecified site (principal); E43 Unspecified severe protein-calorie malnutrition; R18.8 Other ascites; R62.7 Adult failure to thrive; E86.0 Dehydration; D64.9 Anemia, unspecified; D72.829 Elevated white blood cell count, unspecified; E83.52 Hypercalcemia; I69.322 Dysarthria following cerebral infarction; K44.9 Diaphragmatic hernia without obstruction or gangrene; F41.9 Anxiety disorder, unspecified; D63.0 Anemia in neoplastic disease; R06.02 Shortness of breath; R53.81 Other malaise; N40.0 Benign prostatic hyperplasia without lower urinary tract symptoms; Z68.25 Body mass index [BMI] 25.0-25.9, adult
CPT/HCPCS: 36415; 80048; 80053; 80076; 81001; 82140; 82274; 82607; 82728; 82746; 82962; 83010; 83540; 83550; 83615; 83735; 83880; 84100; 84443; 84484; 84550; 85025; 85027; 85045; 85610; 85730; 86850; 86860; 86870; 86880; 86900; 86901; 86902; 86905; 86920; 86922; 88305; 88313; 88325; 88331; 88341; 88342; 93005; 93306; 94668; 97802; 99252; 99283; A4648; J7040; J7120; P9016; Q9957; A4216; G0463; J2405

== ENCOUNTER → 2022-09-19 | Outpatient (CLI) | payer MEDICARE, SELFPAY ==
--- NOTE | 2022-09-19 10:52 | RAD_ITS ---
INDICATION: SOB EXAMINATION/TECHNIQUE: X-RAY - XR Chest 2 Views COMPARISON: Chest CT 08/11/2022. Findings: Single frontal view of the chest. LUNG PARENCHYMA: No acute focal airspace disease or mass lesion. Bilateral nipple shadows. PLEURA: No pleural effusion. No pneumothorax. HEART/GREAT VESSELS: Cardiomediastinal silhouette is unremarkable. BONES: Osseous structures are unremarkable for age. RAD/Chest PA and Lateral IMPRESSION: Chest with no acute disease. Electronically Signed: Deyvi Crowley MD at 6:49 EDT ,
== END | disposition home or self-care (01) ==
LOC: RAD 10:44
PROVIDERS: PCP Physician Assistant; Referring Provider Internal Medicine Medical Oncology; Visit Provider Internal Medicine Medical Oncology
DX: C86.5 Angioimmunoblastic T-cell lymphoma (principal); R06.02 Shortness of breath
CPT/HCPCS: 71046